=== PATIENT | female | born 1990 | race Caucasian/White ===

== ENCOUNTER 2017-11-30 21:58 | Emergency (ER) | payer OTHER, SELFPAY ==
--- OUTSIDE RECORDS SUMMARY | 2017-11-30 22:01 | XMS REPORT | Clinical Summary ---
:1990 Author Organization [facility] Address [address] [place] [address] Care Team Providers Name Role Phone Asked, No Pcp Primary Care Provider Unavailable Allergies Active Allergy Reactions Severity Noted Date Comments Cefadroxil 07/21/2017 Levofloxacin 07/21/2017 Morphine 07/21/2017 Current Medications Prescription Sig. Disp. Refills Start Date End Date Status keTOROlac (TORadol) Take 1 tablet 20 tablet 0 07/21/2017 07/21/2017 Discontinued 10 mg tablet (10 mg total) by mouth every 6 (six) hours as needed for moderate pain for up to 5 days. keTOROlac (TORadol) Take 1 tablet 20 tablet 0 07/21/2017 07/26/2017 10 mg tablet (10 mg total) by mouth every 6 (six) hours as needed for moderate pain for up to 5 days. Active Problems Not on file Encounters Date Type Specialty Care Team Description 07/21/2017 Emergency Emergency Medicine Valentin Dominicdiane-Cristobal Flank pain (Primary Dx); MD Darell Kidney stones after 11/29/2016 Social History Tobacco Use Types Packs/Day Years Used Date Never Smoker Smokeless Tobacco: Never Used Alcohol Use Drinks/Week oz/Week Comments Yes social Sex Assigned at Date Recorded Not on file Last Filed Vital Signs Vital Sign Reading Time Taken Blood Pressure 141/89 07/21/2017 8:14 PM CDT Pulse 95 07/21/2017 8:14 PM CDT Temperature 37.2 C (98.9 F) 07/21/2017 8:14 PM CDT Respiratory Rate 15 07/21/2017 8:14 PM CDT Oxygen Saturation 98% 07/21/2017 8:14 PM CDT Inhaled Oxygen Concentration - - Weight - - Height 165.1 cm (5' 5") 07/21/2017 3:07 PM CDT Body Mass Index - - Plan of Treatment Health Maintenance Due Date Last Done Comments CERVICAL CANCER SCREENING 2009 INFLUENZA VACCINE 12/03/2017 Procedures Procedure Name Priority Date/Time Associated Comments Diagnosis ESTIMATED GFR STAT 07/21/2017 5:50 Results for this PM CDT procedure are in the results section. COMPREHENSIVE STAT 07/21/2017 5:50 Results for this METABOLIC PANEL PM CDT procedure are in the results section. HC COMPLETE BLD COUNT STAT 07/21/2017 5:50 Results for this W/AUTO DIFF PM CDT procedure are in the results section. CT RENAL STONE STAT 07/21/2017 5:41 Results for this PROTOCOL PM CDT procedure are in the results section. after 11/29/2016 Results Estimated GFR (07/21/2017 5:50 PM) GFR Non Af Amer 74 mL/min/1.73 m2 [facility] DEPARTMENT OF PATHOLOGY AND GENOMIC MEDICINE GFR Af Amer 90 mL/min/1.73 m2 [facility] DEPARTMENT OF Comment: PATHOLOGY AND GENOMIC Chronic kidney disease: <60 mL/min/1.73m2 MEDICINE Kidney failure: <15 mL/min/1.73m2 The estimated GFR is calculated from the IDMS-traceable Modification of Diet in Renal Disease Equation. The accuracy of the calculation is poor when the creatinine is normal. Calculated values >90 mL/min/1.73m2 are not reported. This equation has not been validated in children (<18 years), women, the elderly (>70 years), or ethnic groups other than Caucasians and Americans. Specimen Plasma specimen Performing Organization Address City/State/Zipcode Phone Number [facility] DEPARTMENT OF PATHOLOGY AND [address] [place] [address] [employer] [facility] CBC with platelet and differential (07/21/2017 5:50 PM) WBC 10.91 4.50 - 11.00 k/uL [facility] DEPARTMENT OF PATHOLOGY AND GENOMIC MEDICINE RBC 4.57 4.20 - 5.50 m/uL [facility] DEPARTMENT OF PATHOLOGY AND GENOMIC MEDICINE HGB 13.6 12.0 - 16.0 g/dL [facility] DEPARTMENT OF PATHOLOGY AND GENOMIC MEDICINE HCT 40.3 37.0 - 47.0 % [facility] DEPARTMENT OF PATHOLOGY AND GENOMIC MEDICINE MCV 88.2 82.0 - 100.0 fL [facility] DEPARTMENT OF PATHOLOGY AND GENOMIC MEDICINE MCH 29.8 27.0 - 34.0 pg [facility] DEPARTMENT OF PATHOLOGY AND GENOMIC MEDICINE MCHC 33.7 31.0 - 37.0 g/dL [facility] DEPARTMENT OF PATHOLOGY AND GENOMIC MEDICINE RDW - SD 41.0 37.0 - 55.0 fL [facility] DEPARTMENT OF PATHOLOGY AND GENOMIC MEDICINE MPV 10.6 8.8 - 13.2 fL [facility] DEPARTMENT OF PATHOLOGY AND GENOMIC MEDICINE Platelet count 310 150 - 400 k/uL [facility] DEPARTMENT OF PATHOLOGY AND GENOMIC MEDICINE Nucleated RBC 0.00 /100 WBC [facility] DEPARTMENT OF PATHOLOGY AND GENOMIC MEDICINE Neutrophils 66.3 39.0 - 69.0 % [facility] DEPARTMENT OF PATHOLOGY AND GENOMIC MEDICINE Lymphocytes 26.7 25.0 - 45.0 % [facility] DEPARTMENT OF PATHOLOGY AND GENOMIC MEDICINE Monocytes 5.7 0.0 - 10.0 % [facility] DEPARTMENT OF PATHOLOGY AND GENOMIC MEDICINE Eosinophils 0.7 0.0 - 5.0 % [facility] DEPARTMENT OF PATHOLOGY AND GENOMIC MEDICINE Basophils 0.3 0.0 - 1.0 % [facility] DEPARTMENT OF PATHOLOGY AND GENOMIC MEDICINE Immature granulocytes 0.3Comment: 0.0 - 1.0 % [facility] DEPARTMENT OF "Immature PATHOLOGY AND GENOMIC granulocytes" MEDICINE (promyelocytes, myelocytes, metamyelocytes) Specimen Blood Performing Organization Address City/State/Zipcode Phone Number [facility] DEPARTMENT OF PATHOLOGY AND [address] [place] [phone] GENOMIC MEDICINE Comprehensive metabolic panel (07/21/2017 5:50 PM) Sodium 145 135 - 148 mEq/L [facility] DEPARTMENT OF PATHOLOGY AND GENOMIC MEDICINE Potassium 3.7 3.5 - 5.0 mEq/L [facility] DEPARTMENT OF PATHOLOGY AND GENOMIC MEDICINE Chloride 105 98 - 112 mEq/L [facility] DEPARTMENT OF PATHOLOGY AND GENOMIC MEDICINE CO2 27 24 - 31 mEq/L [facility] DEPARTMENT OF PATHOLOGY AND GENOMIC MEDICINE Anion gap 13 7 - 15 mEq/L [facility] DEPARTMENT OF Comment: PATHOLOGY AND GENOMIC Starting from August , anion gap calculation MEDICINE no longer incorporates potassium. Please note the change. BUN 10 6 - 20 mg/dL [facility] DEPARTMENT OF PATHOLOGY AND GENOMIC MEDICINE Creatinine 0.9 0.5 - 0.9 mg/dL [facility] DEPARTMENT OF PATHOLOGY AND GENOMIC MEDICINE Glucose 88 65 - 99 mg/dL [facility] DEPARTMENT OF PATHOLOGY AND GENOMIC MEDICINE Calcium 9.2 8.3 - 10.2 mg/dL [facility] DEPARTMENT OF PATHOLOGY AND GENOMIC MEDICINE Protein 7.2 6.3 - 8.3 g/dL [facility] DEPARTMENT OF Comment: PATHOLOGY AND GENOMIC 4.6-7.0 g/dL MEDICINE 1 week 4.4-7.6 g/dL 7 months-1year5.1-7.3 g/dL 1-2 years5.6-7.5 g/dL >3 years6.0-8.0 g/dL 18-150 6.3-8.3 g/dL Albumin 3.8 3.5 - 5.0 g/dL [facility] DEPARTMENT OF PATHOLOGY AND GENOMIC MEDICINE A/G ratio 1.1 0.7 - 3.8 [facility] DEPARTMENT OF PATHOLOGY AND GENOMIC MEDICINE Alkaline phosphatase 82 35 - 104 U/L [facility] DEPARTMENT OF PATHOLOGY AND GENOMIC MEDICINE AST 17 10 - 35 U/L [facility] DEPARTMENT OF PATHOLOGY AND GENOMIC MEDICINE ALT 16 5 - 50 U/L [facility] DEPARTMENT OF PATHOLOGY AND GENOMIC MEDICINE Total bilirubin 0.3 0.0 - 1.2 mg/dL [facility] DEPARTMENT OF PATHOLOGY AND GENOMIC MEDICINE Specimen Plasma specimen Performing Organization Address City/State/Zipcode Phone Number [facility] DEPARTMENT OF PATHOLOGY AND [address] [place] [address] [facility] [address] Renal Stone Protocol (07/21/2017 5:41 PM) Narrative Performed At EXAMINATION:CT RENAL STONE PROTOCOL RADIANT CLINICAL HISTORY:flank pain TECHNIQUE:Multiple axial images of the abdomen and pelvis were obtained without intravenous administration of iodinated contrast. Sagittal and coronal computerized reformatted images were also obtained. The lack of intravenous contrast reduces the sensitivity of detecting solid organ disease. CT imaging was performed with iterative reconstruction techniques and/or automated exposure control to reduce radiation dose. COMPARISON:None. 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 No ureteral calculus or hydronephrosis is present. The urinary bladder is unremarkable. 2.The unenhanced liver, spleen, pancreas, and adrenals are within normal limits. The gallbladder is absent. 3.No small or large bowel obstruction or inflammation is seen. The stomach is unremarkable. The appendix is not visualized but there is no inflammation or other abnormality near the cecum. 4.Uterus and adnexa are unremarkable. 5.There is no lymphadenopathy or ascites. 6.There is no significant skeletal abnormality. [id number] Procedure Note Interface, Radiology Results Incoming - 07/21/2017 5:49 PM CDT EXAMINATION: CT RENAL STONE PROTOCOL CLINICAL HISTORY: flank pain TECHNIQUE: Multiple axial images of the abdomen and pelvis were obtained without intravenous administration of iodinated contrast. Sagittal and coronal computerized reformatted images were also obtained. The lack of intravenous contrast reduces the sensitivity of detecting solid organ disease. CT imaging was performed with iterative reconstruction techniques and/or automated exposure control to reduce radiation dose. COMPARISON: None. IMPRESSION: 1. 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 No ureteral calculus or hydronephrosis is present. The urinary bladder is unremarkable. 2. The unenhanced liver, spleen, pancreas, and adrenals are within normal limits. The gallbladder is absent. 3. No small or large bowel obstruction or inflammation is seen. The stomach is unremarkable. The appendix is not visualized but there is no inflammation or other abnormality near the cecum. 4. Uterus and adnexa are unremarkable. 5. There is no lymphadenopathy or ascites. 6. There is no significant skeletal abnormality. [id number]-[id number] [facility] Organization Address City/State/[facility] Phone Number [facility] [address] [place] [address] after 11/29/2016 Insurance Payer Benefit Plan / Group Subscriber ID Type Phone Address [facility] CHOICE/CHOICE + xxxxxxxxx HMO/PPO [address] [place] [id number]
[2017-11-30 22:55] LABS: Absolute Lymphocytes (CBC) 2.9 K/uL (0.7-4.9); Absolute Monocytes 0.5 K/uL (0.1-1.3); Absolute Neutrophil 4.4 K/uL (1.8-8.0); Eosinophils % 1.7 % (0-4.4); Hematocrit 38.9 % (36.0-45.0); Lymphocytes % 36.1 % (15.3-44.8); MCH 30.6 pg (27.0-35.0); MCV 88.6 fL (80-100); MPV 8.8 fL (7.6-11.3); Monocytes % 6.3 % (3.3-12.3); RBC Red Blood Cell Count 4.39 M/uL (3.86-4.86)
[2017-11-30 23:06] LABS: Protime INR 0.91
[2017-11-30 23:40] LABS: ALT/SGPT 51 U/L (12-78); AST/SGOT 20 U/L (15-37); Albumin 3.7 g/dL (3.4-5.0); Alkaline Phosphatase 99 U/L (45-117); BUN Blood Urea Nitrogen 11 mg/dL (7-18); Bicarbonate 29 mmol/L (21-32); Bilirubin Direct < 0.1 mg/dL (0-0.2); Bilirubin Total 0.2 mg/dL (0.2-1.0); CKMB Creatine Kinase MB < 1.0 ng/mL (0.3-3.6); Creatine Phosphokinase 76 U/L (26-192); Glucose Level 92 mg/dL (74-106); Magnesium 2.1 mg/dL (1.8-2.4); NT PRO-BNP 37 pg/mL (<125); Potassium 3.7 mmol/L (3.5-5.1); Protein, Total 6.9 g/dL (6.4-8.2); Sodium Level 142 mmol/L (136-145)
[2017-11-30 23:42] LABS: Urine Blood 1+ (NEG); Urine Glucose NEGATIVE (NEG); Urine Protein NEGATIVE (NEG)
[2017-11-30 23:51] LABS: Urine Amorphous Sediment 4+ /HPF (NONE SEEN); Urine Bacteria <20 /HPF (<20); Urine Culture Reflex Order NOT NEEDED; Urine RBC <5 /HPF (NONE SEEN)
--- NOTE | 2017-12-01 00:34 | EDPHYS ---
Physician Documentation [facility] Name: Radha Hu Age: 27 yrs Sex: Female : 1990 Arrival Date: 11/30/2017 Time: 22:02 Bed 8 Private MD: Denilson Riley E ED Physician Festus Ivan HPI: 11/30 22:00 This 27 yrs old Female presents to ER via Ambulatory with complaints of pm1 Shortness Of Breath, Feet Swelling, Hand Swelling. 22:00 The patient has shortness of breath at rest. Onset: The symptoms/episode began/occurred pm1 today. Duration: The symptoms are intermittent. The patient's shortness of breath is aggravated by nothing, is alleviated by nothing. Associated signs and symptoms: Pertinent positives: swelling to bilateral lower extremities and bilateral hands. Patient with complaints of bilateral lower extremity swelling for the last 2 days. Patient concerned that she might have blood clots due to traveling by car to [place]. Patient reports onset of shortness of breath today. No chest pain. Patient recently started on Norvasc that has helped with her blood pressure and headaches . Historical: - Allergies: 22:25 duracef; fc 22:25 Morphine; fc 22:25 Levaquin; fc 22:25 Tape; fc - Home Meds: 22:25 Norvasc 5 mg Oral tab 1 tab twice a day [Active]; fc - PMHx: 22:25 chronic back pain; Degenerative disc disease; hiatal hernia; ibs; Kidney stones; spinal fc stenosis; Hypertension; "sponge kidneys"; - PSHx: 22:25 ; Cholecystectomy; Appendectomy; RIGHT STENT; multiple kidney surg; fc - Immunization history:: Last tetanus immunization: up to date. - Social history:: Smoking status: Patient/guardian denies using tobacco. - Ebola Screening: : Patient negative for fever greater than or equal to 101.5 degrees Fahrenheit, and additional compatible Ebola Virus Disease symptoms Patient denies exposure to infectious person Patient denies travel to an Ebola-affected area in the 21 days before illness onset. ROS: 23:00 Constitutional: Negative for fever, chills, and weight loss, Eyes: Negative for injury, pm1 pain, redness, and discharge, ENT: Negative for injury, pain, and discharge, Neck: Negative for injury, pain, and swelling, Cardiovascular: Negative for chest pain, palpitations, and edema. 23:00 Abdomen/GI: Negative for abdominal pain, nausea, vomiting, diarrhea, and constipation, Back: Negative for injury and pain, : Negative for injury, bleeding, discharge, and swelling, MS/Extremity: Negative for injury and deformity, Skin: Negative for injury, rash, and discoloration, Neuro: Negative for headache, weakness, numbness, tingling, and seizure. 23:00 Respiratory: Positive for shortness of breath, Negative for cough, sputum production. Exam: 23:00 Constitutional: This is a well developed, well nourished patient who is awake, alert, pm1 and in no acute distress. Head/Face: Normocephalic, atraumatic. Eyes: Pupils equal round and reactive to light, extra-ocular motions intact. Lids and lashes normal. Conjunctiva and sclera are non-icteric and not injected. Cornea within normal limits. Periorbital areas with no swelling, redness, or edema. ENT: Nares patent. No nasal discharge, no septal abnormalities noted. Tympanic membranes are normal and external auditory canals are clear. Oropharynx with no redness, swelling, or masses, exudates, or evidence of obstruction, uvula midline. Mucous membranes moist. Neck: Trachea midline, no thyromegaly or masses palpated, and no cervical lymphadenopathy. Supple, full range of motion without nuchal rigidity, or vertebral point tenderness. No Meningismus. Chest/axilla: Normal chest wall appearance and motion. Nontender with no deformity. No lesions are appreciated. Cardiovascular: Regular rate and rhythm with a normal S1 and S2. No gallops, murmurs, or rubs. Normal PMI, no JVD. No pulse deficits. Respiratory: Lungs have equal breath sounds bilaterally, clear to auscultation and percussion. No rales, rhonchi or wheezes noted. No increased work of breathing, no retractions or nasal flaring. Abdomen/GI: Soft, non-tender, with normal bowel sounds. No distension or tympany. No guarding or rebound. No evidence of tenderness throughout. 23:00 Back: No spinal tenderness. No costovertebral tenderness. Full range of motion. Skin: Warm, dry with normal turgor. Normal color with no rashes, no lesions, and no evidence of cellulitis. MS/ Extremity: Pulses equal, no cyanosis. Neurovascular intact. Full, normal range of motion. 23:00 Cardiovascular: Edema: pedal edema, 1+, no edema present to hands. 23:00 Neuro: Orientation: is normal, Motor: is normal, moves all fours. Vital Signs: 22:00 BP 134 / 97; Pulse 87; Resp 18; Temp 98.2(O); Pulse Ox 100% on R/A; Weight 88.45 kg fc (R); Height 5 ft. 5 in. (165.10 cm) (R); Pain 5/10; 23:29 BP 109 / 92; Pulse 79; Resp 18; Pulse Ox 96% on R/A; aa1 12/01 00:18 BP 103 / 75; Pulse 84; Resp 16; Pulse Ox 100% on R/A; aa1 00:59 BP 117 / 79; Pulse 75; Resp 16; Pulse Ox 97% on R/A; Pain 0/10; aa1 11/30 22:00 Body Mass Index 32.45 (88.45 kg, 165.10 cm) fc MDM: 11/30 22:19 Patient medically screened. pm1 12/01 00:30 ED course: Negative for DVT, BMP WNL, BNP WNL, cardiac markers WNL, d-dimer negative, pm1 chest X-ray negative. Dependent edema likely due to new medication, Norvasc. Patient started on Norvasc on 11/[address] Nogueira. Instructed patient to follow up with Dr. Nogueira for further treatment and evaluation. 00:33 Data reviewed: vital signs. Data interpreted: Pulse oximetry: on room air is 100 %. pm1 Interpretation: normal. Counseling: I had a detailed discussion with the patient and/or guardian regarding: the historical points, exam findings, and any diagnostic results supporting the discharge/admit diagnosis, lab results, radiology results, the need for outpatient follow up, Dr. Nogueira, to return to the emergency department if symptoms worsen or persist or if there are any questions or concerns that arise at home. 11/30 22:26 Order name: Basic Metabolic Panel; Complete Time: 23:55 pm1 11/30 22:26 Order name: CBC with Diff; Complete Time: 23:55 pm1 11/30 22:26 Order name: Ckmb; Complete Time: 23:55 pm1 11/30 22:26 Order name: CPK; Complete Time: 23:55 pm1 11/30 22:26 Order name: LFT's; Complete Time: 23:55 pm1 11/30 22:26 Order name: Magnesium; Complete Time: 23:55 pm1 11/30 22:26 Order name: NT PRO-BNP; Complete Time: 23:55 pm1 11/30 22:26 Order name: PT-INR; Complete Time: 23:55 pm1 11/30 22:26 Order name: Ptt, Activated; Complete Time: 23:55 pm1 11/30 22:26 Order name: Troponin (emerg Dept Use Only); Complete Time: 23:55 pm1 11/30 22:27 Order name: Urine Microscopic Only; Complete Time: 23:55 pm1 11/30 22:53 Order name: D-Dimer; Complete Time: 23:55 EDMS 11/30 23:31 Order name: Urine Dipstick--Ancillary (enter results); Complete Time: 23:55 ms 11/30 22:26 Order name: Urine Test (obtain specimen); Complete Time: 23:29 pm1 11/30 22:26 Order name: XRAY Chest (1 view) 11/30 22:26 Order name: EKG; Complete Time: 22:27 pm11/30 22:26 Order name: Cardiac monitoring; Complete Time: 23:08 pm1 11/30 22:26 Order name: EKG - Nurse/Tech; Complete Time: 23:09 pm11/30 22:26 Order name: IV Saline Lock; Complete Time: 23:09 pm11/30 22:26 Order name: Labs collected and sent; Complete Time: 23:09 pm11/30 22:26 Order name: O2 Per Protocol; Complete Time: 23:09 pm11/30 22:26 Order name: O2 Sat Monitoring; Complete Time: 23:09 pm11/30 22:26 Order name: Urine Dipstick-Ancillary (obtain specimen); Complete Time: 23:29 pm1 11/30 22:50 Order name: Extrem Venous W Compression Elier US 11/30 23:31 Order name: Urine --Ancillary (enter results); Complete Time: 23:55 ms Administered Medications: No medications were administered Disposition: 12/01/17 00:34 Discharged to Home. Impression: Dependent edema. - Condition is Stable. - Discharge Instructions: Peripheral Edema. - Medication Reconciliation Form, Thank You Letter form. - Follow up: Emergency Department; When: As needed; Reason: Worsening of condition. Follow up: Private Physician; When: 2 - 3 days; Reason: Recheck today's complaints, Continuance of care, Re-evaluation by your physician. - Problem is new. - Symptoms have improved. Signatures: Dispatcher [employer] [facility] Naomi Gutierrez, RN RN aa1 Emerita Clemons RN RN fc Eligio eHarn, HOUSEKEEPER HEAD HOUSEKEEPER HEAD pm1 Corrections: (The following items were deleted from the chart) 11/30 22:52 22:51 D-DIMER+COAG.LAB.BRZ ordered. [facility] 23:16 22:48 Stone Protocol+CT.RAD.BRZ ordered. [facility] 12/01 01:02 00:34 12/01/2017 00:34 Discharged to Home. Impression: Dependent edema. Condition is aa1 Stable. Forms are Medication Reconciliation Form, Thank You Letter, Antibiotic Education, Prescription Opioid Use. Follow up: Emergency Department; When: As needed; Reason: Worsening of condition. Follow up: Private Physician; When: 2 - 3 days; Reason: Recheck today's complaints, Continuance of care, Re-evaluation by your physician. Problem is new. Symptoms have improved. pm1
--- NOTE | 2017-12-01 00:34 | ER ---
Nurse's Notes [facility] Name: Radha Hu Age: 27 yrs Sex: Female : 1990 Arrival Date: 11/30/2017 Time: 22:02 Bed 8 Private MD: Denilson Riley E Diagnosis: Dependent edema Presentation: 11/30 22:00 Presenting complaint: Patient states: that for 2 days she has been having swelling to hands and feet, then today at 1600 she started to have shortness of breath. Also having back pain. Transition of care: patient was not received from another setting of care. Onset of symptoms was November 28, 2017. Risk Assessment: Do you want to hurt yourself or someone else? Patient reports no desire to harm self or others. Initial Sepsis Screen: Does the patient meet any 2 criteria? No. Patient's initial sepsis screen is negative. Does the patient have a suspected source of infection? No. Patient's initial sepsis screen is negative. Care prior to arrival: None. 22:00 Method Of Arrival: Ambulatory 22:00 Acuity: RENÉE 3 fc Historical: - Allergies: 22:25 duracef; fc 22:25 Morphine; fc 22:25 Levaquin; fc 22:25 Tape; fc - Home Meds: 22:25 Norvasc 5 mg Oral tab 1 tab twice a day [Active]; fc - PMHx: 22:25 chronic back pain; Degenerative disc disease; hiatal hernia; ibs; Kidney stones; spinal fc stenosis; Hypertension; "sponge kidneys"; - PSHx: 22:25 ; Cholecystectomy; Appendectomy; RIGHT STENT; multiple kidney surg; fc - Immunization history:: Last tetanus immunization: up to date. - Social history:: Smoking status: Patient/guardian denies using tobacco. - Ebola Screening: : Patient negative for fever greater than or equal to 101.5 degrees Fahrenheit, and additional compatible Ebola Virus Disease symptoms Patient denies exposure to infectious person Patient denies travel to an Ebola-affected area in the 21 days before illness onset. Screenin:00 Abuse screen: Denies threats or abuse. Nutritional screening: No deficits noted. fc Tuberculosis screening: No symptoms or risk factors identified. Fall Risk None identified. Assessment: 22:30 General: Appears in no apparent distress. comfortable, Behavior is calm, cooperative, aa1 appropriate for age. Pain: Complains of pain in posterior aspect of right lateral abdomen and posterior aspect of left lateral abdomen Quality of pain is described as aching, Pain began earlier today Is continuous. Neuro: Level of Consciousness is awake, alert, obeys commands, Oriented to person, place, time, situation, Moves all extremities. Full function Gait is steady, Speech is normal. Cardiovascular: Denies chest pain, diaphoresis, palpitations, Heart tones S1 S2 present Capillary refill < 3 seconds Clubbing of nail beds is absent JVD is absent pt reports pitting edema to BLE although no pitting edema noted upon examination Rhythm is regular. Respiratory: Reports shortness of breath at rest since this evening Airway is patent Respiratory effort is even, unlabored, Respiratory pattern is regular, symmetrical, Breath sounds are clear bilaterally. GI: No signs and/or symptoms were reported involving the gastrointestinal system. : No signs and/or symptoms were reported regarding the genitourinary system. EENT: No signs and/or symptoms were reported regarding the EENT system. Derm: Skin is intact, is healthy with good turgor, Skin is pink, warm \\T\\ dry. Musculoskeletal: Circulation, motion, and sensation intact. Capillary refill < 3 seconds, Range of motion: intact in all extremities. 23:29 Reassessment: Patient appears in no apparent distress at this time. Patient and/or aa1 family updated on plan of care and expected duration. Pain level reassessed. Patient is alert, oriented x 3, equal unlabored respirations, skin warm/dry/pink. Awaiting lab results. 12/01 00:20 Reassessment: Patient appears in no apparent distress at this time. Patient and/or aa1 family updated on plan of care and expected duration. Pain level reassessed. Patient is alert, oriented x 3, equal unlabored respirations, skin warm/dry/pink. Awaiting provider reassessment. 00:59 Reassessment: Patient appears in no apparent distress at this time. Patient is alert, aa1 oriented x 3, equal unlabored respirations, skin warm/dry/pink. Discussed d/c \\T\\ f/u instructions with pt \\T\\ spouse; denies questions or concerns at this time Patient states feeling better. Vital Signs: 11/30 22:00 BP 134 / 97; Pulse 87; Resp 18; Temp 98.2(O); Pulse Ox 100% on R/A; Weight 88.45 kg fc (R); Height 5 ft. 5 in. (165.10 cm) (R); Pain 5/10; 23:29 BP 109 / 92; Pulse 79; Resp 18; Pulse Ox 96% on R/A; aa1 12/01 00:18 BP 103 / 75; Pulse 84; Resp 16; Pulse Ox 100% on R/A; aa1 00:59 BP 117 / 79; Pulse 75; Resp 16; Pulse Ox 97% on R/A; Pain 0/10; aa1 11/30 22:00 Body Mass Index 32.45 (88.45 kg, 165.10 cm) fc ED Course: 11/30 22:00 Arm band placed on Patient placed in an exam room, on a stretcher. fc 22:00 Patient has correct armband on for positive identification. Placed in gown. Bed in low fc position. Call light in reach. Pulse ox on. NIBP on. 22:00 No provider procedures requiring assistance completed. fc 22:02 Patient arrived in ED. es 22:03 Denilson Riley MD is Private Physician. es 22:16 Eligio Hearn NP is PHCP. pm1 22:16 Festus Ivan MD is Attending Physician. pm1 22:22 Triage completed. fc 22:30 Initial lab(s) drawn, by wv, sent to lab. Inserted saline lock: 20 gauge in left aa1 antecubital area, using aseptic technique. Blood collected. 22:37 Naomi Gutierrez, JASON is Primary Nurse. aa1 22:40 XRAY Chest (1 view) In Process Unspecified. EDMS 23:22 Ultrasound completed. Patient tolerated well. sg3 23:23 Extrem Venous W Compression Elier US In Process Unspecified. EDMS 23:29 Urine collected: clean catch specimen, cloudy. aa1 12/01 00:59 IV discontinued, intact, bleeding controlled, No redness/swelling at site. Pressure aa1 dressing applied. Administered Medications: No medications were administered Outcome: 00:34 Discharge ordered by . pm1 01:01 Discharged to home ambulatory, with significant other. aa1 01:01 Condition: good 01:01 Discharge instructions given to patient, significant other, Instructed on discharge instructions, follow up and referral plans. Demonstrated understanding of instructions, follow-up care. 01:02 Patient left the ED. aa1 Signatures: Dispatcher [employer] Naomi Whitman RN RN aa1 Feli Young Felicia, RN RN Eligio Hearn, COATING INSPECTOR COATING INSPECTOR pm1 Chata Cope 3
--- NOTE | 2017-12-01 06:41 | EKG ---
Test Date: 2017-11-30 Test Time: 22:45:27 Refractory Tile Helper: DANNY MEASUREMENT RESULTS: Intervals: Rate: 73 CA: 166 QRSD: 94 QT: 386 QTc: 425 [place]: P: 31 CA: 166 QRS: 4 T: 11 INTERPRETIVE STATEMENTS: Sinus rhythm with marked sinus arrhythmia Minimal voltage criteria for LVH, may be normal variant Borderline ECG No previous ECG available for comparison Electronically Signed On 12-01-17 06:41:32 CDT by Santos Woodward
--- NOTE | 2017-12-01 09:29 | RAD REPORT ---
EXAM DESCRIPTION: RAD - Chest Single View - 11/30/2017 10:41 pm CLINICAL HISTORY: Extremity swelling, shortness of breath COMPARISON: May 2015 TECHNIQUE: AP portable chest image was obtained 2230 hours . FINDINGS: Lungs are clear. Heart and vasculature are normal. No measurable pleural effusion and no p neumothorax. No gross bony abnormality seen. No acute aortic findings suspected. IMPRESSION: No acute cardiopulmonary process. No failure or volume overload findings. Chest is not significantly different from 2016.
--- NOTE | 2017-12-01 09:38 | RAD REPORT ---
EXAM DESCRIPTION: VAS - Extrem Venous W Compress Elier - 11/30/2017 11:23 pm CLINICAL HISTORY: Bilateral leg pain and swelling COMPARISON: None. TECHNIQUE: Real-time sonographic evaluation of the bilateral lower extremity deep venous systems was performed. FINDINGS: Normal compressibility, flow augmentation, phasic flow and spontaneous flow are identified in the left and right lower extremity common femoral, superficial femoral, popliteal and posterior t ibial veins. No intraluminal filling defects seen. IMPRESSION: No DVT in either lower extremity.
== END 2017-12-01 01:02 | disposition home or self-care (01) ==
LOC: ER 21:58
DX: R60.9 Edema, unspecified (principal); I10 Essential (primary) hypertension; Z88.6 Allergy status to analgesic agent; Z88.1 Allergy status to other antibiotic agents; Z88.8 Allergy status to other drugs, medicaments and biological substances; Z91.048 Other nonmedicinal substance allergy status
CPT/HCPCS: 36415; 71045; 80048; 80076; 81003; 81015; 81025; 82550; 82553; 83735; 83880; 84484; 85025; 85379; 85610; 85730; 93005; 93970; 99284

== ENCOUNTER 2018-10-20 12:23 | Emergency (ER) | payer OTHER ==
--- OUTSIDE RECORDS SUMMARY | 2018-10-20 12:25 | XMS REPORT | Clinical Summary ---
:1990 Author Organization [facility] Address [address] [place] [address] Care Team Providers Name Role Phone Asked, No Pcp Primary Care Provider Unavailable Allergies Active Allergy Reactions Severity Noted Date Comments Cefadroxil 07/21/2017 Levofloxacin 07/21/2017 Morphine 07/21/2017 Medications Not on file Active Problems Not on file Social History Tobacco Use Types Packs/Day Years Used Date Never Smoker Smokeless Tobacco: Never Used Alcohol Use Drinks/Week oz/Week Comments Yes social Sex Assigned at Date Recorded Not on file Job Start Date Occupation Industry Not on file Not on file Not on file Travel History Travel Start Travel End No recent travel history available. Last Filed Vital Signs Not on file Plan of Treatment Health Maintenance Due Date Last Done Comments INFLUENZA VACCINE 12/03/2018 Results Not on fileafter 10/19/2017 (Home) [address] [place] [id number] Advance Directives Patient has advance care planning documents on file. For more information, please contact:[address] [address]
--- OUTSIDE RECORDS SUMMARY | 2018-10-20 12:25 | XMS REPORT ---
:1990 Author [facility] Address [address] [place] [address] Dr. Yusuf [address] [place] [id number] Care Team Providers Name Role Phone Unavailable Unavailable Unavailable Problems This patient has no known problems. Allergies, Adverse Reactions, Alerts This patient has no known allergies or adverse reactions. Medications This patient has no known medications.
[2018-10-20 13:20] LABS: Absolute Lymphocytes (CBC) 2.3 K/uL (0.7-4.9); Basophils % 1.1 % (0-1.3); Eosinophils % 1.1 % (0-4.4); Lymphocytes % 24.7 % (15.3-44.8); MPV 8.5 fL (7.6-11.3); Monocytes % 4.7 % (3.3-12.3); RBC Red Blood Cell Count 4.86 M/uL (3.86-4.86)
[2018-10-20] MEDS ORDERED: ONDANSETRON 4 MG/2 ML VIAL ONE (13:31)
[2018-10-20] MEDS ORDERED: NA CHLORIDE 0.9% 1,000 ML ONE (13:31)
[2018-10-20] MEDS ORDERED: FENTANYL CITR 100 MCG/2 ML ONE (13:31)
[2018-10-20 13:40] LABS: Potassium 4.2 mmol/L (3.5-5.1)
[2018-10-20 13:50] LABS: Urine Blood 2+ (NEG); Urine Glucose NEGATIVE (NEG); Urine Protein NEGATIVE (NEG); Urine pH 5.5 (5.0-7.0)
--- NOTE | 2018-10-20 14:24 | RAD REPORT ---
EXAM DESCRIPTION: CT - Stone Protocol - 10/20/2018 2:06 pm CLINICAL HISTORY: Right flank pain Patient indicates history of right UPJ 5 mm stone diagnosed on outside CT study several days earlier. COMPARISON: CT study August 2016. The most recent outside studies not available. TECHNIQUE: Axial 5 mm thick images were obtained without oral or IV contrast. The [id number] span s the entirety of the system partially obscuring uppermost abdomen and lung bases. All CT scans are performed using dose optimization technique as appropriate and may include automated exposure control or mA/KV adjustment according to patient size. FINDINGS: Patient has numerous calcifications up to 7 mm size can calices of both kidneys. There is additional renal pyramid mineralization of each kidney. This pattern is not significantly different f rom the 2017 comparison. No right UPJ calculus identified and no calcification confirmed along the course of the right ureter. There is a 9 millimeter calcification in the right lower pelvis (image 129/158) that is new from 201 7 but believed to be medial to the course of the right ureter. No ureteral or bladder calculus identi fied. No correlate for the historically stated right-side obstructing calculus. No hydronephrosis pre sent. Pelvic floor calcification pattern is otherwise stable from 2017. No suspicious renal masses. Isodense masses and pyelonephritis are not excluded on a stone protocol CT scan. No urinary bladder suspicious finding. No significant adrenal finding. Imaged portions of the liver, spleen and pancreas show no suspicious findings on non-contrast imaging . No gallbladder or biliary tree abnormality identified. No suspicious bowel findings. No hernia, mass or bulky lymphadenopathy noted. No free air, free fluid or inflammatory stranding. No acute bone finding. IMPRESSION: No hydronephrosis present and no bladder or ureteral calculus as a correlate to the aleyda ent provided history of right-side 5 mm UPJ calculus. Patient has numerous variably sized calyx calculi as well as renal. Mid mineralization. Pattern is no t substantially different from 2017. No specific finding to indicate retrograde movement of a calculu s from the UPJ to a calyx. Isodense masses and pyelonephritis are not excluded on stone protocol technique.
--- NOTE | 2018-10-20 14:45 | EDPHYS ---
Physician Documentation [facility] Name: Radha Hu Age: 27 yrs Sex: Female : 1990 Arrival Date: 10/20/2018 Time: 12:27 Bed 25 Private MD: ED Physician Selwyn Villa HPI: 10/20 13:11 This 27 yrs old Female presents to ER via Ambulatory with complaints of kdr Possible Kidney Stone. 13:11 The patient complains of pain in the right mid back. Right flank. Onset: The kdr symptoms/episode began/occurred gradually, 4 day(s) ago. Modifying factors: The symptoms are alleviated by nothing. the symptoms are aggravated by movement, palpation/percussion. Associated signs and symptoms: Pertinent positives: diarrhea, nausea, vomiting. Severity of pain: At its worst the pain was moderate severe just prior to arrival, today, in the emergency department the pain is unchanged. The patient has experienced similar episodes in the past, multiple times, chronically. The patient has been recently seen by a physician: Was seen in the last few days at [facility] in [place]. 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 - Social history:: Smoking status: unknown Patient/guardian denies using alcohol, street drugs, IV drugs. - Ebola Screening: : No symptoms or risks identified at this time. ROS: 13:11 Constitutional: Negative for weight loss - has had fever and chills the last few days kdr Eyes: Negative for injury, pain, redness, and discharge, Neck: Negative for injury, pain, and swelling, Cardiovascular: Negative for chest pain, palpitations, and edema, Respiratory: Negative for shortness of breath, cough, wheezing, and pleuritic chest pain, : Negative for injury, bleeding, discharge, and swelling, MS/Extremity: Negative for injury and deformity, Skin: Negative for injury, rash, and discoloration, Neuro: Negative for headache, weakness, numbness, tingling, and seizure activity. Psych: Negative for depression, anxiety, suicide ideation, homicidal ideation, and hallucinations, Allergy/Immunology: Negative for hives, rash, and allergies, Endocrine: Negative for neck swelling, polydipsia, polyuria, polyphagia, and marked weight changes. 13:11 Abdomen/GI: Positive for abdominal pain, nausea and vomiting, diarrhea, Negative for black/tarry stool, rectal pain, rectal bleeding. Exam: 13:11 Constitutional: This is a well developed, well nourished patient who is awake, alert, kdr and in no acute distress. Head/Face: Normocephalic, atraumatic. Eyes: Pupils equal round and reactive to light, extra-ocular motions intact. Lids and lashes normal. Conjunctiva and sclera are non-icteric and not injected. Cornea within normal limits. Periorbital areas with no swelling, redness, or edema. Neck: Trachea midline, no thyromegaly or masses palpated, and no cervical lymphadenopathy. Supple, full range of motion without nuchal rigidity, or vertebral point tenderness. No Meningismus. Chest/axilla: Normal chest wall appearance and motion. Nontender with no deformity. No lesions are appreciated. Cardiovascular: Regular rate and rhythm with a normal S1 and S2. No gallops, murmurs, or rubs. Normal PMI, no JVD. No pulse deficits. Respiratory: Lungs have equal breath sounds bilaterally, clear to auscultation and percussion. No rales, rhonchi or wheezes noted. No increased work of breathing, no retractions or nasal flaring. Back: No spinal tenderness. No costovertebral tenderness. Full range of motion. Skin: Warm, dry with normal turgor. Normal color with no rashes, no lesions, and no evidence of cellulitis. MS/ Extremity: Pulses equal, no cyanosis. Neurovascular intact. Full, normal range of motion. Neuro: Awake and alert, GCS 15, oriented to person, place, time, and situation. Cranial nerves II-XII grossly intact. Motor strength 5/5 in all extremities. Sensory grossly intact. Cerebellar exam normal. Normal gait. Psych: Awake, alert, with orientation to person, place and time. Behavior, mood, and affect are within normal limits. 13:11 Abdomen/GI: Inspection: abdomen appears normal, obese Bowel sounds: Palpation: soft, mild abdominal tenderness, in the umbilical area, right upper quadrant and left upper quadrant. Vital Signs: 12:30 BP 123 / 82; Pulse 104; Resp 18; Temp 98.8(O); Pulse Ox 100% on R/A; Weight 90.72 kg; hj Height 5 ft. 5 in. (165.10 cm); Pain 9/10; 14:47 BP 108 / 73; Pulse 100; Resp 18; Temp 98.7; Pulse Ox 100% on R/A; Pain 0/10; mg2 15:24 BP 111 / 81; Pulse 95; Resp 18; Temp 98.5; Pulse Ox 100% on R/A; Pain 2/10; mg2 12:30 Body Mass Index 33.28 (90.72 kg, 165.10 cm) hj MDM: 14:44 Patient medically screened. kdr 15:00 Data reviewed: vital signs, nurses notes, lab test result(s), radiologic studies. kdr Counseling: I had a detailed discussion with the patient and/or guardian regarding: the historical points, exam findings, and any diagnostic results supporting the discharge/admit diagnosis, lab results, radiology results, the need for outpatient follow up. 10/20 12:54 Order name: Basic Metabolic Panel; Complete Time: 14:42 kdr 10/20 12:54 Order name: CBC with Diff; Complete Time: 14:42 kdr 10/20 12:54 Order name: Creatinine for Radiology; Complete Time: 14:42 kdr 10/20 13:10 Order name: CT Stone Protocol; Complete Time: 14:42 kdr 10/20 13:33 Order name: Urine Dipstick--Ancillary (enter results) bd 10/20 13:33 Order name: Urine --Ancillary (enter results) bd 10/20 12:54 Order name: IV Saline Lock; Complete Time: 13:10 kdr 10/20 12:54 Order name: Labs collected and sent; Complete Time: 13:10 kdr Administered Medications: 13:34 Drug: NS 0.9% 1000 ml Route: IV; Rate: 1 bolus; Site: left antecubital; mg2 14:47 Follow up: Response: No adverse reaction; IV Status: Completed infusion; IV Intake: mg2 1000ml 13:34 Drug: fentaNYL (PF) 50 mcg Route: IVP; Site: left antecubital; mg2 14:14 Follow up: Response: No adverse reaction; Marked relief of symptoms mg2 13:34 Drug: Zofran 4 mg Route: IVP; Site: left antecubital; mg2 14:14 Follow up: Response: No adverse reaction; Marked relief of symptoms mg2 Disposition: 10/20/18 14:44 Discharged to Home. Impression: Unspecified renal colic, Hematuria, unspecified, Right flank pain. - Condition is Stable. - Discharge Instructions: Hematuria, Adult, Renal Colic, [id number], Kidney Stones, [id number], Intravenous Pyelogram. - Prescriptions for cefuroxime axetil 250 mg Oral tablet - take 1 tablet by ORAL route every 12 hours; 20 tablet. - Medication Reconciliation Form, Thank You Letter form. - Follow up: Private Physician; When: 2 - 3 days; Reason: If symptoms return, Further diagnostic work-up, Recheck today's complaints, Continuance of care, Re-evaluation by your physician. - Problem is an ongoing problem. - Symptoms have improved. Signatures: Dispatcher [employer] EDAL Selwyn Villa MD MD [facility] Jose E Hallman RN RN Kurtis Marie RN RN mg2 Corrections: (The following items were deleted from the chart) 15:25 14:44 10/20/2018 14:44 Discharged to Home. Impression: Unspecified renal colic; mg2 Hematuria, unspecified; Right flank pain. Condition is Stable. Forms are Medication Reconciliation Form, Thank You Letter, Antibiotic Education, Prescription Opioid Use. Follow up: Private Physician; When: 2 - 3 days; Reason: If symptoms return, Further diagnostic work-up, Recheck today's complaints, Continuance of care, Re-evaluation by your physician. Problem is an ongoing problem. Symptoms have improved. kdr
--- NOTE | 2018-10-20 14:45 | ER ---
Nurse's Notes [facility] Name: Radha Hu Age: 27 yrs Sex: Female : 1990 Arrival Date: 10/20/2018 Time: 12:27 Bed 25 Private MD: Diagnosis: Unspecified renal colic;Hematuria, unspecified;Right flank pain Presentation: 10/20 12:27 Presenting complaint: Patient states: i went to [facility] ER last Lester, they said i had hj 5mm stone on the R UPJ, my urine culture is positive for UTI, urologist, told me to come here for eval; now, both my sides are killing me; reports fever and chills; reports N/V and diarrhea;. Transition of care: patient was not received from another setting of care. Onset of symptoms was October 20, 2018. Risk Assessment: Do you want to hurt yourself or someone else? Patient reports no desire to harm self or others. Initial Sepsis Screen: Does the patient meet any 2 criteria? No. Patient's initial sepsis screen is negative. Does the patient have a suspected source of infection? No. Patient's initial sepsis screen is negative. Care prior to arrival: None. 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 - Social history:: Smoking status: unknown Patient/guardian denies using alcohol, street drugs, IV drugs. - Ebola Screening: : No symptoms or risks identified at this time. Screenin:16 Abuse screen: Denies threats or abuse. Denies injuries from another. Nutritional mg2 screening: No deficits noted. Tuberculosis screening: No symptoms or risk factors identified. Fall Risk IV access (20 points). Assessment: 14:15 General: Appears in no apparent distress. comfortable, Behavior is calm, cooperative. mg2 Pain: Complains of pain in both flanks Pain does not radiate. Pain currently is 5 out of 10 on a pain scale. Quality of pain is described as aching, Pain began gradually, last Friday Is intermittent, Alleviated by medications. Neuro: Level of Consciousness is awake, alert, obeys commands, Oriented to person, place, time, situation. Cardiovascular: Capillary refill < 3 seconds Patient's skin is warm and dry. Respiratory: Airway is patent Respiratory effort is even, unlabored, Respiratory pattern is regular, symmetrical. GI: Bowel sounds present X 4 quads. Abd is soft. : Urine is clear. EENT: No signs and/or symptoms were reported regarding the EENT system. Derm: Skin is intact, is healthy with good turgor, Skin is pink, warm \\T\\ dry. normal. Musculoskeletal: Circulation, motion, and sensation intact. Capillary refill < 3 seconds. Vital Signs: 12:30 BP 123 / 82; Pulse 104; Resp 18; Temp 98.8(O); Pulse Ox 100% on R/A; Weight 90.72 kg; hj Height 5 ft. 5 in. (165.10 cm); Pain 9/10; 14:47 BP 108 / 73; Pulse 100; Resp 18; Temp 98.7; Pulse Ox 100% on R/A; Pain 0/10; mg2 15:24 BP 111 / 81; Pulse 95; Resp 18; Temp 98.5; Pulse Ox 100% on R/A; Pain 2/10; mg2 12:30 Body Mass Index 33.28 (90.72 kg, 165.10 cm) ED Course: 12:27 Patient arrived in ED. rg4 12:30 Triage completed. hj 12:30 Arm band placed on left wrist. hj 12:54 Kurtis Marie, JASON is Primary Nurse. mg2 12:54 Selwyn Villa MD is Attending Physician. kdr 13:30 Inserted saline lock: 20 gauge in left antecubital area, using aseptic technique. Blood mg2 collected. 13:46 No provider procedures requiring assistance completed. mg2 14:07 CT Stone Protocol In Process Unspecified. EDMS 14:16 Patient has correct armband on for positive identification. Pulse ox on. NIBP on. Door mg2 closed. Warm blanket given. 15:25 IV discontinued, intact, bleeding controlled, No redness/swelling at site. Pressure mg2 dressing applied. Administered Medications: 13:34 Drug: NS 0.9% 1000 ml Route: IV; Rate: 1 bolus; Site: left antecubital; mg2 14:47 Follow up: Response: No adverse reaction; IV Status: Completed infusion; IV Intake: mg2 1000ml 13:34 Drug: fentaNYL (PF) 50 mcg Route: IVP; Site: left antecubital; mg2 14:14 Follow up: Response: No adverse reaction; Marked relief of symptoms mg2 13:34 Drug: Zofran 4 mg Route: IVP; Site: left antecubital; mg2 14:14 Follow up: Response: No adverse reaction; Marked relief of symptoms mg2 Intake: 14:47 IV: 1000ml; Total: 1000ml. mg2 Outcome: 14:44 Discharge ordered by . kdr 15:25 Discharged to home ambulatory. mg2 15:25 Condition: stable 15:25 Discharge instructions given to patient, Instructed on discharge instructions, follow up and referral plans. medication usage, Demonstrated understanding of instructions, follow-up care, medications, Prescriptions given X 1. 15:25 Patient left the ED. mg2 Signatures: Dispatcher [employer] EDMS Selwyn Villa MD MD kdr Jose E Hallman RN RN hj Garcia, Rubi rg4 Kurtis Marie RN RN mg2 Corrections: (The following items were deleted from the chart) 12:32 12:30 Pulse 104bpm; Resp 18bpm; Pulse Ox 100% RA; Temp 98.8F Oral; 90.72 kg; Height 5 hj ft. 5 in.; BMI: 33.2; Pain 9/10; hj
== END 2018-10-20 15:25 | disposition home or self-care (01) ==
LOC: ER 12:23
DX: N23 Unspecified renal colic (principal); R31.9 Hematuria, unspecified; I10 Essential (primary) hypertension; Z88.1 Allergy status to other antibiotic agents; Z88.5 Allergy status to narcotic agent; Z87.442 Personal history of urinary calculi; Z91.048 Other nonmedicinal substance allergy status
CPT/HCPCS: 36415; 74176; 76377; 80048; 81003; 81025; 85025; 96361; 96374; 96375; 99284; J2405; J3010; J7030

== ENCOUNTER 2018-12-09 18:32 | Emergency (ER) | payer OTHER ==
--- OUTSIDE RECORDS SUMMARY | 2018-12-09 18:34 | XMS REPORT | Clinical Summary ---
:1990 Author Organization [facility] Address [address] [place] [address] Care Team Providers Name Role Phone Asked, [...] INFLUENZA VACCINE 12/03/2018 Results Not on fileafter 12/08/2017 (Home) [address] [place] [id number] Advance Directives Patient has advance care planning documents on file. For more information, please contact:[address] [address]
--- OUTSIDE RECORDS SUMMARY | 2018-12-09 18:34 | XMS REPORT ---
:1990 [facility] Address [address] [place] [address] Dr. Yusuf [address] [place] [id number] Care Team Providers Name Role Phone Unavailable Unavailable Unavailable Problems This patient has no known problems. Allergies, Adverse Reactions, Alerts This patient has no known allergies or adverse reactions. Medications This patient has no known medications.
--- NOTE | 2018-12-09 20:09 | RAD REPORT ---
EXAM DESCRIPTION: USExtremity Venous Uni Ltd12/09/2018 8:00 pm CLINICAL HISTORY: Right leg pain and swelling. COMPARISON: 2017 FINDINGS: Right common femoral, superficial femoral, popliteal and right posterior tibial veins are compressible and demonstrate augmentation. Doppler demonstrates good flow. 1 centimeter fluid collection within the anterior right lower extremity at the site of puncture wound IMPRESSION: No evidence of deep venous thrombosis involving the right lower extremity. 1 centimeter fluid collection within the anterior right lower extremity at the site of puncture wound may represent an abscess or hematoma
--- NOTE | 2018-12-09 20:17 | RAD REPORT ---
EXAM DESCRIPTION: RAD - Tib Fib Right - 12/09/2018 8:08 pm CLINICAL HISTORY: Right leg pain FINDINGS: No fracture is seen No bony destructive lesion. Edema within the subcutaneous tissues
[2018-12-09] MEDS ORDERED: LIDOCAINE 1% MPF 5 ML VIAL ONE (20:25)
--- NOTE | 2018-12-09 21:20 | EDPHYS ---
Physician Documentation [facility] Name: Radha Hu Age: 28 yrs Sex: Female : 1990 Arrival Date: 12/09/2018 Time: 18:36 Bed 24 Private MD: ED Physician Jian Steen HPI: 12/09 21:38 This 28 yrs old Female presents to ER via Ambulatory with complaints of Leg kb Swelling. 21:38 The patient presents with an injury, pain, swelling, tenderness. The complaints affect kb the right bolaños. Context: The problem was sustained outdoors, resulted from a mis-step, the patient can fully bear weight, the patient is able to ambulate, Problem is a result from a previous injury: No. Onset: The symptoms/episode began/occurred 2 week(s) ago. Modifying factors: The symptoms are alleviated by nothing. the symptoms are aggravated by nothing. Associated signs and symptoms: Pertinent positives: swelling, Pertinent negatives calf tenderness, fever, nausea, numbness, rash, tingling, vomiting, warmth, weakness. Treatment prior to arrival includes: no previous treatment. Severity of symptoms: At their worst the symptoms were mild, in the emergency department the symptoms are unchanged. The patient has not experienced similar symptoms in the past. The patient has not recently seen a physician. Pt reports she stepped in a hole and got a wound from a pipe in the ground 2 weeks ago. States it is getting better, but today she noticed an area of swelling that she was concerned about. Pt is on bactrim currently. Historical: - Allergies: 18:48 duracef; aj 18:48 Levaquin; aj 18:48 Morphine; aj 18:48 Tape; aj - Home Meds: 18:48 Norvasc 5 mg Oral tab 1 tab twice a day [Active]; aj - PMHx: 18:48 "sponge kidneys"; chronic back pain; Degenerative disc disease; hiatal hernia; aj Hypertension; ibs; Kidney stones; spinal stenosis; - PSHx: 18:48 ; Cholecystectomy; Appendectomy; RIGHT STENT; multiple kidney surg; aj - Immunization history:: Adult Immunizations up to date. - Social history:: Smoking status: Patient/guardian denies using tobacco. - Ebola Screening: : No symptoms or risks identified at this time. ROS: 21:34 Constitutional: Negative for fever, chills, and weight loss, Cardiovascular: Negative kb for chest pain, palpitations, and edema, Respiratory: Negative for shortness of breath, cough, wheezing, and pleuritic chest pain, Abdomen/GI: Negative for abdominal pain, nausea, vomiting, diarrhea, and constipation, Back: Negative for injury and pain, : Negative for injury, bleeding, discharge, and swelling, Neuro: Negative for headache, weakness, numbness, tingling, and seizure. 21:34 MS/extremity: Positive for injury or acute deformity, pain, swelling, tenderness, of the right bolaños. Exam: 21:34 Constitutional: This is a well developed, well nourished patient who is awake, alert, kb and in no acute distress. Head/Face: Normocephalic, atraumatic. Neck: Trachea midline, no thyromegaly or masses palpated, and no cervical lymphadenopathy. Supple, full range of motion without nuchal rigidity, or vertebral point tenderness. No Meningismus. Chest/axilla: Normal chest wall appearance and motion. Nontender with no deformity. No lesions are appreciated. Cardiovascular: Regular rate and rhythm with a normal S1 and S2. No gallops, murmurs, or rubs. Normal PMI, no JVD. No pulse deficits. Respiratory: Lungs have equal breath sounds bilaterally, clear to auscultation and percussion. No rales, rhonchi or wheezes noted. No increased work of breathing, no retractions or nasal flaring. Abdomen/GI: Soft, non-tender, with normal bowel sounds. No distension or tympany. No guarding or rebound. No evidence of tenderness throughout. Neuro: Awake and alert, GCS 15, oriented to person, place, time, and situation. Cranial nerves II-XII grossly intact. Motor strength 5/5 in all extremities. Sensory grossly intact. Cerebellar exam normal. Normal gait. 21:34 Musculoskeletal/extremity: Extremities: grossly normal except: noted in the right bolaños: pain, swelling, tenderness, small, healing wound with mild erythema , ROM: intact in all extremities, Circulation is intact in all extremities. Sensation intact. Weight bearing: able to fully bear weight. 21:34 Skin: small area noted to bolaños, possible hematoma. Vital Signs: 18:48 BP 135 / 82; Pulse 111; Resp 20; Temp 98.6; Pulse Ox 95% on R/A; Weight 95.25 kg; aj Height 5 ft. 5 in. (165.10 cm); 19:15 BP 117 / 89; Pulse 110; Resp 18; Pulse Ox 96% ; ea 20:54 BP 120 / 91; Pulse 90; Resp 18; Pulse Ox 99% on R/A; ea 21:30 BP 118 / 76; Pulse 80; Resp 18; Temp 98.2; Pulse Ox 99% on R/A; ea 18:48 Body Mass Index 34.95 (95.25 kg, 165.10 cm) aj Procedures: 21:06 I \\T\\ D: Incision and drainage was performed for an abscess of the right right bolaños rn Prepped with Betadine, Anesthetized with 2 ml's 1% Lidocaine. Incised with 18g needle. Drained small amount bloody fluid. Dressing: sterile 4x4 gauze, the patient tolerated the procedure well, using u/s guidance. MDM: 19:06 Patient medically screened. kb 21:07 ED course: Aspirated only blood, no purulence, using u/s guidance, improved symptoms rn and swelling. . 21:34 Data reviewed: vital signs, nurses notes. Data interpreted: Pulse oximetry: on room air kb is 99 %. Interpretation: normal. Counseling: I had a detailed discussion with the patient and/or guardian regarding: the historical points, exam findings, and any diagnostic results supporting the discharge/admit diagnosis, radiology results, the need for outpatient follow up, a family practitioner, to return to the emergency department if symptoms worsen or persist or if there are any questions or concerns that arise at home. 12/09 19:17 Order name: US Extremity Venous Unilateral Ltd; Complete Time: 20:11 kb 12/09 19:17 Order name: Tib Fib Right XRAY; Complete Time: 20:18 kb Administered Medications: 21:03 Drug: Lidocaine (1 %) 1 vials {Note: medication administered by provider.} Volume: 5 ea ml; Route: Infiltration; Disposition: 12/10 02:22 Co-signature as Attending Physician, Jian Steen MD. rn Disposition: 12/09/18 21:19 Discharged to Home. Impression: Hematoma, Local infection of the skin and subcutaneous tissue, unspecified. - Condition is Stable. - Discharge Instructions: Hematoma, Zhrz-[id number], Wound Infection, Gsdn-so-Slsg. - Prescriptions for Doxycycline Hyclate 100 mg Oral Tablet - take 1 tablet by ORAL route every 12 hours; 20 tablet. - Medication Reconciliation Form, Thank You Letter, Antibiotic Education, Prescription Opioid Use form. - Follow up: Emergency Department; When: As needed; Reason: Worsening of condition. Follow up: Private Physician; When: 2 - 3 days; Reason: Recheck today's complaints, Continuance of care, Re-evaluation by your physician. Signatures: Dispatcher [employer] EDMS Amelia Fuller, ANSWERING SERVICE OPERATOR-C ANSWERING SERVICE OPERATOR-CkCarmencita Anderson RN RN Jian [place] MD MD rn Smirch, Shelby, RN RN ss Antunez, Elena, RN RN ea Corrections: (The following items were deleted from the chart) 12/09 21:19 21:19 12/09/2018 21:19 Discharged to Home. Impression: Hematoma; Open wound of lower kb leg. Condition is Stable. Forms are Medication Reconciliation Form, Thank You Letter, Antibiotic Education, Prescription Opioid Use. Follow up: Emergency Department; When: As needed; Reason: Worsening of condition. Follow up: Private Physician; When: 2 - 3 days; Reason: Recheck today's complaints, Continuance of care, Re-evaluation by your physician. kb 21:41 21:19 12/09/2018 21:19 Discharged to Home. Impression: Hematoma; Local infection of the ea skin and subcutaneous tissue, unspecified. Condition is Stable. Forms are Medication Reconciliation Form, Thank You Letter, Antibiotic Education, Prescription Opioid Use. Follow up: Emergency Department; When: As needed; Reason: Worsening of condition. Follow up: Private Physician; When: 2 - 3 days; Reason: Recheck today's complaints, Continuance of care, Re-evaluation by your physician. kb
--- NOTE | 2018-12-09 21:20 | ER ---
Nurse's Notes [facility] Name: Radha Hu Age: 28 yrs Sex: Female : 1990 Arrival Date: 12/09/2018 Time: 18:36 Bed 24 Private MD: Diagnosis: Hematoma;Local infection of the skin and subcutaneous tissue, unspecified Presentation: 12/09 18:47 Presenting complaint: Patient states: Wound on right bolaños from trip and fall 2 weeks aj ago that is red, hot, and swollen today. Transition of care: patient was not received from another setting of care. Onset of symptoms was November 26, 2018. Risk Assessment: Do you want to hurt yourself or someone else? Patient reports no desire to harm self or others. Initial Sepsis Screen: Does the patient meet any 2 criteria? HR > 90 bpm. Does the patient have a suspected source of infection? No. Patient's initial sepsis screen is negative. Care prior to arrival: None. 18:47 Method Of Arrival: Ambulatory 18:47 Acuity: RENÉE 4 aj Triage Assessment: 18:48 General: Appears in no apparent distress. comfortable, Behavior is calm, cooperative, aj appropriate for age. Pain: Complains of pain in right bolaños. Neuro: Level of Consciousness is awake, alert, obeys commands, Oriented to person, place, time, situation, Appropriate for age. Respiratory: Airway is patent Respiratory effort is even, unlabored, Respiratory pattern is regular, symmetrical. Derm: Skin is intact, is healthy with good turgor, Skin is pink, warm \\T\\ dry. normal. Historical: - Allergies: 18:48 duracef; aj 18:48 Levaquin; aj 18:48 Morphine; aj 18:48 Tape; aj - Home Meds: 18:48 Norvasc 5 mg Oral tab 1 tab twice a day [Active]; aj - PMHx: 18:48 "sponge kidneys"; chronic back pain; Degenerative disc disease; hiatal hernia; aj Hypertension; ibs; Kidney stones; spinal stenosis; - PSHx: 18:48 ; Cholecystectomy; Appendectomy; RIGHT STENT; multiple kidney surg; aj - Immunization history:: Adult Immunizations up to date. - Social history:: Smoking status: Patient/guardian denies using tobacco. - Ebola Screening: : No symptoms or risks identified at this time. Screenin:35 Abuse screen: Denies threats or abuse. Nutritional screening: No deficits noted. ea Tuberculosis screening: No symptoms or risk factors identified. Fall Risk None identified. Assessment: 19:25 General: Appears in no apparent distress. Behavior is calm, cooperative, appropriate ea for age. Pain: Complains of pain in right bolaños. Neuro: Level of Consciousness is awake, alert, obeys commands, Oriented to person, place, time, situation. Cardiovascular: Patient's skin is warm and dry. Respiratory: Airway is patent Respiratory effort is even, unlabored, Respiratory pattern is regular, symmetrical. Derm: Skin temperature is warm swelling to right bolaños. 19:43 Reassessment: Pt taken to radiology. ea 19:43 Reassessment: Patient and/or family updated on plan of care and expected duration. Pain ea level reassessed. Patient is alert, oriented x 3, equal unlabored respirations, skin warm/dry/pink. 20:54 Reassessment: Patient and/or family updated on plan of care and expected duration. Pain ea level reassessed. Patient is alert, oriented x 3, equal unlabored respirations, skin warm/dry/pink. Provider at bedside. 21:37 Reassessment: Patient and/or family updated on plan of care and expected duration. Pain ea level reassessed. Patient is alert, oriented x 3, equal unlabored respirations, skin warm/dry/pink. Discharge instruction given to patient, verbalized the understanding of instruction. Vital Signs: 18:48 BP 135 / 82; Pulse 111; Resp 20; Temp 98.6; Pulse Ox 95% on R/A; Weight 95.25 kg; aj Height 5 ft. 5 in. (165.10 cm); 19:15 BP 117 / 89; Pulse 110; Resp 18; Pulse Ox 96% ; ea 20:54 BP 120 / 91; Pulse 90; Resp 18; Pulse Ox 99% on R/A; ea 21:30 BP 118 / 76; Pulse 80; Resp 18; Temp 98.2; Pulse Ox 99% on R/A; ea 18:48 Body Mass Index 34.95 (95.25 kg, 165.10 cm) ED Course: 18:36 Patient arrived in ED. as 18:43 Amelia Fuller FNP-C is [facility]. kb 18:43 Jian Steen MD is Attending Physician. kb 18:48 Triage completed. aj 18:48 Arm band placed on left wrist. Patient placed in waiting room. aj 19:32 Celia eBe, RN is Primary Nurse. ea 19:35 Patient has correct armband on for positive identification. Bed in low position. Call ea light in reach. Side rails up X2. 20:00 US Extremity Venous Unilateral Ltd In Process Unspecified. EDMS 20:07 Tib Fib Right XRAY In Process Unspecified. EDMS 21:20 drainage to right bolaños, pt tolerated well. ea 21:39 Patient did not have IV access during this emergency room visit. ea Administered Medications: 21:03 Drug: Lidocaine (1 %) 1 vials {Note: medication administered by provider.} Volume: 5 ea ml; Route: Infiltration; Outcome: 21:19 Discharge ordered by MD. kb 21:39 Discharged to home ambulatory. ea 21:39 Condition: stable 21:39 Discharge instructions given to patient, Instructed on discharge instructions, follow up and referral plans. medication usage, Demonstrated understanding of instructions, follow-up care, medications, Prescriptions given X 1. 21:41 Patient left the ED. ea Signatures: Dispatcher [employer] EDAmelia Lopez, PAPER PRODUCTS PRINTER-C PAPER PRODUCTS PRINTER-Carmencita Gomez, RN RN Kaylen Sorenson as Celia Bee, RN RN oksana Corrections: (The following items were deleted from the chart) 19:44 19:43 Reassessment: Pt taken to radiology ea ea 21:41 21:40 BP 118 / 76; Pulse 80bpm; Resp 18bpm; Pulse Ox 99% RA; Temp 98.2F; ea ea
== END 2018-12-09 21:41 | disposition home or self-care (01) ==
LOC: ER 18:32
PROC: 0J9N0ZZ Drainage of Right Lower Leg Subcutaneous Tissue and Fascia, Open Approach (ICD-10-PCS; principal; 2018-12-09)
DX: L02.415 Cutaneous abscess of right lower limb (principal); L08.9 Local infection of the skin and subcutaneous tissue, unspecified; W22.8XXA Striking against or struck by other objects, initial encounter; Y93.01 Activity, walking, marching and hiking; Y92.9 Unspecified place or not applicable; I10 Essential (primary) hypertension; Z88.1 Allergy status to other antibiotic agents; Z88.5 Allergy status to narcotic agent; Z91.048 Other nonmedicinal substance allergy status
CPT/HCPCS: 93971; 99283

== ENCOUNTER 2022-11-13 19:54 | Emergency (ER) | payer OTHER ==
--- OUTSIDE RECORDS SUMMARY | 2022-11-13 19:58 | XMS REPORT | Continuity of Care Document ---
:1990 Author Organization [facility] t Address [address] [place] [address] [address] [place] [address] Care Team Providers Name Role Phone Pcp, Patient Does Not Have A Primary Care Physician [id number] Dillon BETH, Estela Attending Clinician ESTELA JEAN-BAPTISTE Attending Clinician Unavailable KAILEY RIGGS Attending Clinician Unavailable Doctor Unassigned, [place] Attending Clinician Unavailable STAN Attending Clinician Unavailable MADISON LEON Attending Clinician Unavailable Madison Leon MD Attending Clinician GENIA CHATMAN Attending Clinician Unavailable Deandre Attending Clinician Unavailable BHAVIK LOZADA Attending Clinician Unavailable STAN Admitting Clinician Unavailable BRITTNI MADSEN Admitting Clinician Unavailable Deandre Admitting Clinician Unavailable ISABELA GARVIN Admitting Clinician Unavailable Payers Payer Name Policy Type Policy Number Effective Date Expiration Date S ource [place] [id number] [place] Problems Condition Condition Condition Status Onset Resolution Last Treating Co mments Source Name Details Category Date Date Treatment Clinician Date Benign Benign Disease Active Univers hypertensi hypertensi 2-10 it y of on with on with 00:00: [place] chronic chronic 00 Medical kidney kidney Branch disease disease Hyperglyce Hyperglyce Disease Active 2019- U nivers philippe philippe 6-05 ity of 00:00: [place] 00 Medical Branch Ureteral Ureteral Disease Active 2020-0 [facility] di stone with stone with 5-28 st hydronephr hydronephr 00:00: [facility] osis osis 00 l Lumbar Lumbar Disease Active 2020-0 Univers hernia hernia 4-09 ity of 00:00: [place] 00 Medical Branch 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 4-09 it y of s s 00:00: [place] 00 Medical Branch Insomnia Insomnia Disease Active 2020-0 Unive rs due to due to 2-16 ity of medical medical 00:00: [place] condition condition 00 [facility] Branch Allergic Allergic Disease Active 2019-0 Unive rs rhinitis rhinitis 8-28 ity of due to due to 00:00: [place] pollen pollen 00 Medical Branch Chronic Chronic Disease Active 2019-0 Univers pain pain 8-28 ity of disorder disorder 00:00: [place] 00 Medical Branch Irritable Irritable Disease Active 2019-0 Uni vers bowel bowel 8-14 ity of syndrome syndrome 00:00: [place] 00 Medical Branch Localized Localized Disease Active 2019-0 Uni vers edema edema 8-14 ity of 00:00: [place] 00 Medical Branch Neck pain Neck pain Disease Active 2019-0 Uni vers 8-14 ity of 00:00: [place] 00 Medical Branch Other Other Disease Active 2019-0 Univers lactose lactose 8-14 ity of intoleranc intoleranc 00:00: [place] 00 [facility] Recurrent Recurrent Disease Active 2019-0 Uni vers infective infective 8-14 ity of cystitis cystitis 00:00: [place] 00 Medical Branch Chronic Chronic Disease Active 2019-0 Univers low back low back 8-14 ity of pain pain 00:00: [place] 00 Medical Branch Fibrocysti Fibrocysti Disease Active 2019-0 U nivers c disease c disease 8-14 ity of of breast of breast 00:00[place] Gastroesop Gastroesop Disease Active 2019-0 U nivers hageal hageal 8-14 ity of reflux reflux 00:00: [place] disease disease 00 Medical Branch Hypokalemi Hypokalemi Disease Active 2019-0 U nivers a a 8-14 ity of 00:00: [place] 00 Medical Branch 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 8-14 it y of itis itis 00:00: [place] 00 Medical Branch Ureteral Ureteral Disease Active 2019-0 Unive rs stone stone 6-18 ity of 00:00: [place] 00 Medical Branch Body mass Body mass Disease Active Uni vers index index 7-06 ity of (BMI) (BMI) 00:00: [place] 32.0-32.9, 32.0-32.9, 00 Me dical adult adult Branch Kidney Kidney Disease Active Univers stone stone 705 ity of 00:00: [place] 00 Medical Branch 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 00:00: [place] 00 Medical Branch 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:[place] both 00 Medical kidneys kidneys Branch Allergies, Adverse Reactions, Alerts Allergy Allergy Status Severity Reaction(s) Onset Inactive Treating Comm ents Source Name Type Date Date Clinician Cefadrox Propensi Active Hives Method i il ty to 3-19 st adverse 00:00: [facility] reaction 00 l s to drug Levoflox Propensi Active Hives Method i acin ty to 3-19 st adverse 00:00: [facility]osp[facility] reaction 00 l s to drug Morphine Propensi Active Anaphylaxis M ethodi ty to 3-19 st adverse 00:00: [facility]osp[facility] reaction 00 l s to drug Codeine Propensi Active Itching 2016-05 Univer s ty to 0-20 ity of adverse 00:00: [place] reaction 00 Medical s Branch CODEINE DRUG Active ITCHING 2016-05 Univers INGREDI 0-20 ity of 00:00: [place] 00 Medical Branch Adhesive Propensi Active Rash 2015-05 Univer s ty to 0-04 ity of adverse 00:00: [place] reaction 00 Medical s Branch Cefadrox Propensi Active Hives 2015-05 Univer s il ty to 0-04 ity of adverse 00:00: [place] reaction 00 Medical s Branch ADHESIVE Drug Active Rash 2015-05 Univers Class 0-04 ity of 00:00: [place] 00 Medical Branch Levoflox Propensi Active Hives 2015-05 Univer s acin ty to 0-04 ity of adverse 00:00: [place] reaction 00 Medical s Branch Morphine Propensi Active Other - See 2015-05 Phlebiti s Univers ty to comments 0-04 . ity of adverse 00:00: [place] reaction 00 Medical s Branch CEFADROX DRUG Active Hives 2015-05 Univers [place] INGREDI 0-04 ity of 00:00: [place] 00 Medical Branch LEVOFLOX DRUG Active Hives 2015-05 Univers ACIN INGREDI 0-04 ity of 00:00: [place] 00 Medical Branch MORPHINE DRUG Active Other-Cmnt 2015-05 Univ ers INGREDI 0-04 ity of 00:00: [place] 00 Medical Branch Adhesive Propensi Active Rash 2015-05 Univer s ty to 0-04 ity of adverse 00:00: [place] reaction 00 Medical s Branch Social History Social Habit Start Date Stop Date Quantity Comments Source Gender identity [facility] Tobacco use and 2022-10-31 2022-10-31 Smokeless Universit y of exposure 00:00:00 00:00:00 tobacco non-user [facility] History of Social 2022-07-11 2022-07-[address] function 00:00:00 00:00:00 Hospital Exposure to 2021-10-27 2021-11-06 Not sure [facility] SARS-CoV-2 (event) 00:00:00 14:13:00 [facility] Alcohol intake 2021-07-27 2021-07-27 Current drinker [facility] 00:00:00 00:00:00 of [employer] (finding) Alcohol Comment 2017-07-21 2017-07-21 social [facility]00 [facility] Sex Assigned At [birth year] [facility] 00:[facility]00 [facility] Smoking Status Start Date Stop Date Source Never smoked tobacco [facility] [place] [facility] Medications Ordered Filled Start Stop Current Ordering Indication Dosage Frequency Signature Comments Components Source Medication Medication Date Date Medication? Clinician (SIG) Name Name hydroCHLORO 0 Yes 12.5mg Take 0.5 Univers thiazide 25 6-29 tablets by it y of mg tablet 11:33: mouth in [facility] 12 the Medical morning. Branch amLODIPine 2022-0 Yes 5mg Take 1 Unive rs 5 mg tablet 6-29 tablet by ity of 11:33: mouth in [place] [address] the Medical morning Branch and 1 tablet in the evening. hydroCHLORO 2022-0 Yes 12.5mg Take 0.5 Univers thiazide 25 6-29 tablets by it y of mg tablet 11:33: mouth in [facility] 12 the Medical morning. Branch amLODIPine 2023-0 Yes 5mg Take 1 Unive rs 5 mg tablet 6-29 tablet by ity of 11:33: mouth in [place] [address] the Medical morning Branch and 1 tablet in the evening. hydroCHLORO 2023-0 Yes 12.5mg Take 0.5 Univers thiazide 25 6-29 tablets by it y of mg tablet 11:33: mouth in [place] [address] the Medical morning. Branch amLODIPine 2023-0 Yes 5mg Take 1 Unive rs 5 mg tablet 6-29 tablet by ity of 11:33: mouth in [place] [address] the Medical morning Branch and 1 tablet in the evening. hydroCHLORO 2023-0 Yes 12.5mg Take 0.5 Univers thiazide 25 6-29 tablets by it y of mg tablet 11:33: mouth in [place] [address] the Medical morning. Branch amLODIPine 2023-0 Yes 5mg Take 1 Unive rs 5 mg tablet 6-29 tablet by ity of 11:33: mouth in [place] [address] the Medical morning Branch and 1 tablet in the evening. hydroCHLORO 2023-0 Yes 12.5mg Take 0.5 Univers thiazide 25 6-29 tablets by it y of mg tablet 11:33: mouth in [place] [address] the Medical morning. Branch amLODIPine 2023-0 Yes 5mg Take 1 Unive rs 5 mg tablet 6-29 tablet by ity of 11:33: mouth in [place] [address] the Medical morning Branch and 1 tablet in the evening. SERTraline 2023-0 2024- No 200mg Take 2 Uni vers 100 mg 2- tablets by ity of tablet 00:00: 05:59 mouth. [place] 00 :00 Medical Branch SERTraline 2023-0 2024- No 200mg Take 2 Uni vers 100 mg 2- tablets by ity of tablet 00:00: 05:59 mouth. [place] 00 :00 Medical Branch SERTraline 2023-0 2024- No 200mg Take 2 Uni vers 100 mg 2- tablets by ity of tablet 00:00: 05:59 mouth. [place] 00 :00 [facility] Branch SERTraline 2023-0 2024- No 200mg Take 2 Uni vers 100 mg 2- tablets by ity of tablet 00:00: 05:59 mouth. [place] 00 :00 [facility] Branch SERTraline 2023-0 2024- No 200mg Take 2 Uni vers 100 mg 06-05 tablets by ity of tablet 00:00: 05:59 mouth. [place] 00 :00 Medical Branch FENTanyl PF 2021- No 50ug 50 mcg, Un olivia (SUBLIMAZE 11-07 Slow IV ity o f (PF)) 02:30: 01:57 Push, [place] injection 00 :00 ONCE, 1 Medical 50 mcg dose, On Branch Fri11/06/21 at 2130, Routine famotidine 2021- No 20mg 20 mg, Univ ers (PEPCID 11-07 Slow IV ity of (PF)) 02:30: 01:56 Push, [place] injection 00 :00 ONCE, 1 Medical 20 mg dose, On Branch Fri11/06/21 at 2130, JANNETH ondansetron 2021- No 4mg 4 mg, Slow Univers (ZOFRAN 11-07 IV Push, ity of (PF)) 01:30: 01:55 ONCE, 1 [place] injection 4 00 :00 dose, On Medi ayana mg Fri11/06/21 Branch at 2030, JANNETH NaCl 0.9% 2021- No 1000mL at 999 Uni vers (NS) bolus 11-07 mL/hr, ity of infusion 01:28: 03:04 1,000 mL, [place] as 1,000 mL 00 :00 IV Medical Infusion, Branch ONCE, 1 dose, On Fri11/06/21 at 2030, JANNETH ketorolac 2021- No 30mg 30 mg, Unive rs (TORADOL) 11-07 Slow IV ity of injection 00:45: 01:04 Push, [place] 30 mg 00 :00 ONCE, 1 Medical dose, On Branch Fri11/06/21 at 1945, Routine NaCl 0.9% 2021- No 1000mL at 999 Uni vers (NS) bolus 11-06 07-06 mL/hr, ity of infusion 21:15: 03:03 1,000 mL, [place] as 1,000 mL 00 :00 IV Medical Infusion, Branch ONCE, 1 dose, On Fri11/06/21 at 1615, JANNTEH ibuprofen Yes [id number] 400mg Take 2 U nivers (MOTRIN IB) 7-05 tablets by it y of 200 mg 00:00: mouth [place] tablet 00 every 6 Medical (six) Branch hours as needed for Pain (scale 1-3) for up to 30 doses. albuterol Yes [id number] 2{puff} Inhale 2 Univers 90 7-05 Puffs ity of mcg/actuati 00:00: every 6 [place] as on inhaler 00 (six) Medical hours as Branch needed for Wheezing or Shortness of Breath. ondansetron Yes [id number] 4mg Take 1 Univers 4 mg 7-05 tablet by ity of disintegrat 00:00: mouth [place] ing tablet 00 every 8 Medica l (eight) Branch hours as needed for Nausea and Vomiting (N/V) for up to 10 doses. ibuprofen Yes [id number] 400mg Take 2 U nivers (MOTRIN IB) 7-05 tablets by it y of 200 mg 00:00: mouth [place] tablet 00 every 6 Medical (six) Branch hours as needed for Pain (scale 1-3) for up to 30 doses. albuterol Yes [id number] 2{puff} Inhale 2 Univers 90 7-05 Puffs ity of mcg/actuati 00:00: every 6 [place] as on inhaler 00 (six) Medical hours as Branch needed for Wheezing or Shortness of Breath. ondansetron Yes [id number] 4mg Take 1 Univers 4 mg 7-05 tablet by ity of disintegrat 00:00: mouth [place] ing tablet 00 every 8 Medica l (eight) Branch hours as needed for Nausea and Vomiting (N/V) for up to 10 doses. ibuprofen Yes [id number] 400mg Take 2 U nivers (MOTRIN IB) 7-05 tablets by it y of 200 mg 00:00: mouth [place] tablet 00 every 6 Medical (six) Branch hours as needed for Pain (scale 1-3) for up to 30 doses. albuterol Yes [id number] 2{puff} Inhale 2 Univers 90 7-05 Puffs ity of mcg/actuati 00:00: every 6 [place] as on inhaler 00 (six) Medical hours as Branch needed for Wheezing or Shortness of Breath. ondansetron 0 Yes [id number] 4mg Take 1 Univers 4 mg 7-05 tablet by ity of disintegrat 00:00: mouth [place] ing tablet 00 every 8 Medica l (eight) Branch hours as needed for Nausea and Vomiting (N/V) for up to 10 doses. ibuprofen 2021-0 Yes [id number] 400mg Take 2 U nivers (MOTRIN IB) 7-05 tablets by it y of 200 mg 00:00: mouth [place] tablet 00 every 6 Medical (six) Branch hours as needed for Pain (scale 1-3) for up to 30 doses. albuterol 2021-0 Yes [id number] 2{puff} Inhale 2 Univers 90 7-05 Puffs ity of mcg/actuati 00:00: every 6 [place] on inhaler 00 (six) Medical hours as Branch needed for Wheezing or Shortness of Breath. ondansetron 2021-0 Yes [id number] 4mg Take 1 Univers 4 mg 7-05 tablet by ity of disintegrat 00:00: mouth [place] ing tablet 00 every 8 Medica l (eight) Branch hours as needed for Nausea and Vomiting (N/V) for up to 10 doses. ibuprofen 0 Yes [id number] 400mg Take 2 U nivers (MOTRIN IB) 7-05 tablets by it y of 200 mg 00:00: mouth [place] tablet 00 every 6 Medical (six) Branch hours as needed for Pain (scale 1-3) for up to 30 doses. albuterol 2021-0 Yes [id number] 2{puff} Inhale 2 Univers 90 7-05 Puffs ity of mcg/actuati 00:00: every 6 [place] as on inhaler 00 (six) Medical hours as Branch needed for Wheezing or Shortness of Breath. ondansetron 2021-0 Yes [id number] 4mg Take 1 Univers 4 mg 7-05 tablet by ity of disintegrat 00:00: mouth [place] ing tablet 00 every 8 Medica l (eight) Branch hours as needed for Nausea and Vomiting (N/V) for up to 10 doses. ibuprofen 2021-0 Yes [id number] 400mg Take 2 U nivers (MOTRIN IB) 7-05 tablets by it y of 200 mg 00:00: mouth [place] tablet 00 every 6 Medical (six) Branch hours as needed for Pain (scale 1-3) for up to 30 doses. albuterol Yes [id number] 2{puff} Inhale 2 Univers 90 7-05 Puffs ity of mcg/actuati 00:00: every 6 [place] as on inhaler 00 (six) Medical hours as Branch needed for Wheezing or Shortness of Breath. ondansetron Yes [id number] 4mg Take 1 Univers 4 mg 7-05 tablet by ity of disintegrat 00:00: mouth [place] ing tablet 00 every 8 Medica l (eight) Branch hours as needed for Nausea and Vomiting (N/V) for up to 10 doses. tamsulosin Yes [id number] .4mg Take 1 U nivers 0.4 mg 24 7-05 capsule by ity of hr capsule 00:00: mouth at [place] 00 bedtime. Medical Branch ibuprofen Yes [id number] 400mg Take 2 U nivers (MOTRIN IB) 7-05 tablets by it y of 200 mg 00:00: mouth [place] tablet 00 every 6 Medical (six) Branch hours as needed for Pain (scale 1-3) for up to 30 doses. albuterol Yes [id number] 2{puff} Inhale 2 Univers 90 7-05 Puffs ity of mcg/actuati 00:00: every 6 [place] as on inhaler 00 (six) Medical hours as Branch needed for Wheezing or Shortness of Breath. ondansetron Yes [id number] 4mg Take 1 Univers 4 mg 7-05 tablet by ity of disintegrat 00:00: mouth [place] ing tablet 00 every 8 Medica l (eight) Branch hours as needed for Nausea and Vomiting (N/V) for up to 10 doses. tamsulosin 2022- No [id number] .4mg Take 1 Univers 0.4 mg 24 7-05 06-22 capsule by ity of hr capsule 00:00: 00:00 [place] 00 :00 bedtime. Medical Branch tamsulosin 2022- No [id number] .4mg Take 1 Univers 0.4 mg 24 7-05 06-22 capsule by ity of hr capsule 00:00: 00:00 [place] :00 bedtime. Medical Branch HYDROcodone 2021- No [id number] 1{tbl} Take 1 U nivers -acetaminop 11-06 tablet by it y of hen (NORCO) 00:00: 04:59 mouth [place] 10-325 mg 00 :00 every 8 Medical tablet (eight) Branch hours as needed for Pain (scale 1-3) for up to 15 days. Indication s: acute pain famotidine 2021- No [id number] 20mg Take 1 Univers (PEPCID) 20 11-06 tablet by it y of mg tablet 00:00: 04:59 mouth 2 [place] 00 :00 (two) Medical times Branch daily for 30 doses. metoclopram 2021-0 Yes 10mg Take 1 Univ ers florecita HCl 10 3-24 tablet by ity of mg tablet 00:00: mouth. [address] metoclopram 2021-0 Yes 10mg Take 1 Univ ers florecita HCl 10 3-24 tablet by ity of mg tablet 00:00: mouth. [address] Branch metoclopram 2021-0 Yes 10mg Take 1 Univ ers florecita HCl 10 3-24 tablet by ity of mg tablet 00:00: mouth. [address] Branch metoclopram 2021-0 Yes 10mg Take 1 Univ ers florecita HCl 10 3-24 tablet by ity of mg tablet 00:00: mouth. [address] Branch metoclopram 2021-0 Yes 10mg Take 1 Univ ers florecita HCl 10 3-24 tablet by ity of mg tablet 00:00: mouth. [address] metoclopram 2021-0 Yes 10mg Take 1 Univ ers florecita HCl 10 3-24 tablet by ity of mg tablet 00:00: mouth. [address] metoclopram 2021-0 Yes 10mg Q6H Take 1 Meth chyna florecita 3-24 tablet (10 st (REGLAN) 10 00:00: mg total) H [facility]spita MG tablet 00 by mouth l every 6 (six) hours as needed (nausea). amLODIPine Yes 5mg Q.5D Take 5 mg Me thodi (NORVASC) 5 8-[address] mg tablet 00:00: (two) Hospita 00 times a l day. escitalopra Yes 20mg Take 20 mg Univers m oxalate 6-19 by mouth ity of (LEXAPRO) 21:35: daily. [place] 20 mg 17 Medical tablet Branch hydroCHLORO Yes 12.5mg Take 12.5 Univers thiazide 25 6-19 mg by ity of mg tablet 21:35: mouth [place] 17 daily. Medical Branch busPIRone Yes 15mg Take 15 mg Un olivia 15 mg 6-19 by mouth 2 ity of tablet 21:35: (two) [place] 17 times Medical daily. Branch amLODIPine Yes 5mg Take 5 mg Un olivia (NORVASC) 5 6-19 by mouth 2 it y of mg tablet 21:35: (two) [place] 17 times Medical daily. Branch escitalopra Yes 20mg Take 20 mg Univers m oxalate 6-19 by mouth ity of (LEXAPRO) 21:35: daily. [place] 20 mg 17 Medical tablet Branch busPIRone Yes 15mg Take 15 mg Un olivia 15 mg 6-19 by mouth 2 ity of tablet 21:35: (two) [place] 17 times Medical daily. Branch escitalopra Yes 20mg Take 20 mg Univers m oxalate 6-19 by mouth ity of (LEXAPRO) 21:35: daily. [place] 20 mg 17 Medical tablet Branch busPIRone Yes 15mg Take 15 mg Un olivia 15 mg 6-19 by mouth 2 ity of tablet 21:35: (two) [place] 17 times Medical daily. Branch escitalopra Yes 20mg Take 20 mg Univers m oxalate 6-19 by mouth ity of (LEXAPRO) 21:35: daily. [place] 20 mg 17 Medical tablet Branch busPIRone Yes 15mg Take 15 mg Un olivia 15 mg 6-19 by mouth 2 ity of tablet 21:35: (two) [place] 17 times Medical daily. Branch escitalopra Yes 20mg Take 20 mg Univers m oxalate 6-19 by mouth ity of (LEXAPRO) 21:35: daily. [place] 20 mg 17 Medical tablet Branch busPIRone Yes 15mg Take 15 mg Un olivia 15 mg 6-19 by mouth 2 ity of tablet 21:35: (two) [place] 17 times Medical daily. Branch escitalopra 2019-0 Yes 20mg Take 20 mg Univers m oxalate 6-19 by mouth ity of (LEXAPRO) 21:35: daily. [place] 20 mg 17 Medical tablet Branch busPIRone Yes 15mg Take 15 mg Un olivia 15 mg 6-19 by mouth 2 ity of tablet 21:35: (two) [place] 17 times Medical daily. Branch escitalopra Yes 20mg Take 20 mg Univers m oxalate 6-19 by mouth ity of (LEXAPRO) 21:35: daily. [place] 20 mg 17 Medical tablet Branch hydroCHLORO Yes 12.5mg Take 12.5 Univers thiazide 25 6-19 mg by ity of mg tablet 21:35: mouth [place] 17 daily. Medical Branch busPIRone Yes 15mg Take 15 mg Un olivia 15 mg 6-19 by mouth 2 ity of tablet 21:35: (two) [place] 17 times Medical daily. Branch amLODIPine Yes 5mg Take 5 mg Un [place] (NORVASC) 5 6-19 by mouth 2 it y of mg tablet 21:35: (two) [place] 17 times Medical daily. Branch HYDROcodone Yes [id number] 1{tbl} Take 1 Univers -acetaminop 6-19 tablet by ity of hen 5-325 00:00: mouth [place] mg tablet 00 every 6 Medical (six) Branch hours as needed for Pain (scale 4-6) or Pain (scale 7-10). HYDROcodone Yes [id number] 1{tbl} Take 1 Univers -acetaminop 6-19 tablet by ity of hen 5-325 00:00: mouth [place] mg tablet 00 every 6 Medical (six) Branch hours as needed for Pain (scale 4-6) or Pain (scale 7-10). HYDROcodone Yes [id number] 1{tbl} Take 1 Univers -acetaminop 6-19 tablet by ity of hen 5-325 00:00: mouth [place] mg tablet 00 every 6 Medical (six) Branch hours as needed for Pain (scale 4-6) or Pain (scale 7-10). HYDROcodone Yes [id number] 1{tbl} Take 1 Univers -acetaminop 6-19 tablet by ity of hen 5-325 00:00: mouth [place] mg tablet 00 every 6 Medical (six) Branch hours as needed for Pain (scale 4-6) or Pain (scale 7-10). HYDROcodone 2019-0 Yes [id number] 1{tbl} Take 1 Univers -acetaminop 6-19 tablet by ity of hen 5-325 00:00: mouth [place] mg tablet 00 every 6 Medical (six) Branch hours as needed for Pain (scale 4-6) or Pain (scale 7-10). HYDROcodone 2019-0 Yes [id number] 1{tbl} Take 1 Univers -acetaminop 6-19 tablet by ity of hen 5-325 00:00: mouth [place] mg tablet 00 every 6 Medical (six) Branch hours as needed for Pain (scale 4-6) or Pain (scale 7-10). HYDROcodone 2019-0 Yes [id number] 1{tbl} Take 1 Univers -acetaminop 6-19 tablet by ity of hen 5-325 00:00: mouth [place] mg tablet 00 every 6 Medical (six) Branch hours as needed for Pain (scale 4-6) or Pain (scale 7-10). ondansetron 2019-0 Yes [id number] 4mg Take 1 Univers (ZOFRAN 6-15 tablet by ity of ODT) 4 mg 00:00: mouth [place] disintegrat 00 every 8 Medic al ing tablet (eight) Branch hours as needed for Nausea and Vomiting (N/V). HYDROcodone 2018-0 Yes [id number] 1{tbl} Take 1-2 Univers -acetaminop 6-15 tablets by it y of hen 5-325 00:00: mouth [place] mg tablet 00 every 6 Medical (six) Branch hours as needed for Pain (scale 1-3). ketorolac 2019-0 Yes [id number] 10mg Take 1 U nivers 10 mg 6-15 tablet by ity of tablet 00:00: mouth [place] 00 every 6 Medical (six) Branch hours as needed for Pain (scale 1-3). ondansetron 2019-0 Yes [id number] 4mg Take 1 Univers (ZOFRAN 6-15 tablet by ity of ODT) 4 mg 00:00: mouth [place] disintegrat 00 every 8 Medic al ing tablet (eight) Branch hours as needed for Nausea and Vomiting (N/V). HYDROcodone 2019-0 Yes [id number] 1{tbl} Take 1-2 Univers -acetaminop 6-15 tablets by it y of hen 5-325 00:00: mouth [place] mg tablet 00 every 6 Medical (six) Branch hours as needed for Pain (scale 1-3). ketorolac 2019-0 Yes [id number] 10mg Take 1 U nivers 10 mg 6-15 tablet by ity of tablet 00:00: mouth [place] 00 every 6 Medical (six) Branch hours as needed for Pain (scale 1-3). ondansetron 2019- Yes [id number] 4mg Take 1 Univers (ZOFRAN 6-15 tablet by ity of ODT) 4 mg 00:00: mouth [place] disintegrat 00 every 8 Medic al ing tablet (eight) Branch hours as needed for Nausea and Vomiting (N/V). HYDROcodone 2019- Yes [id number] 1{tbl} Take 1-2 Univers -acetaminop 6-15 tablets by it y of hen 5-325 00:00: mouth [place] mg tablet 00 every 6 Medical (six) Branch hours as needed for Pain (scale 1-3). ketorolac 2019-0 Yes [id number] 10mg Take 1 U nivers 10 mg 6-15 tablet by ity of tablet 00:00: mouth [place] 00 every 6 Medical (six) Branch hours as needed for Pain (scale 1-3). ondansetron 2019-0 Yes [id number] 4mg Take 1 Univers (ZOFRAN 6-15 tablet by ity of ODT) 4 mg 00:00: mouth [place] disintegrat 00 every 8 Medic al ing tablet (eight) Branch hours as needed for Nausea and Vomiting (N/V). HYDROcodone 2019-0 Yes [id number] 1{tbl} Take 1-2 Univers -acetaminop 6-15 tablets by it y of hen 5-325 00:00: mouth [place] mg tablet 00 every 6 Medical (six) Branch hours as needed for Pain (scale 1-3). ketorolac 2019-0 Yes [id number] 10mg Take 1 U nivers 10 mg 6-15 tablet by ity of tablet 00:00: mouth [place] 00 every 6 Medical (six) Branch hours as needed for Pain (scale 1-3). ondansetron 2019-0 Yes [id number] 4mg Take 1 Univers (ZOFRAN 6-15 tablet by ity of ODT) 4 mg 00:00: mouth [place] disintegrat 00 every 8 Medic al ing tablet (eight) Branch hours as needed for Nausea and Vomiting (N/V). HYDROcodone 2019- Yes [id number] 1{tbl} Take 1-2 Univers -acetaminop 6-15 tablets by it y of hen 5-325 00:00: mouth [place] mg tablet 00 every 6 Medical (six) Branch hours as needed for Pain (scale 1-3). ketorolac 2019-0 Yes [id number] 10mg Take 1 U nivers 10 mg 6-15 tablet by ity of tablet 00:00: mouth [place] 00 every 6 Medical (six) Branch hours as needed for Pain (scale 1-3). ondansetron 2018- Yes [id number] 4mg Take 1 Univers (ZOFRAN 6-15 tablet by ity of ODT) 4 mg 00:00: mouth [place] disintegrat 00 every 8 Medic al ing tablet (eight) Branch hours as needed for Nausea and Vomiting (N/V). HYDROcodone 2018- Yes [id number] 1{tbl} Take 1-2 Univers -acetaminop 6-15 tablets by it y of hen 5-325 00:00: mouth [place] mg tablet 00 every 6 Medical (six) Branch hours as needed for Pain (scale 1-3). ketorolac 2018-0 Yes [id number] 10mg Take 1 U nivers 10 mg 6-15 tablet by ity of tablet 00:00: mouth [place] 00 every 6 Medical (six) Branch hours as needed for Pain (scale 1-3). tamsulosin 2018-0 Yes [id number] .4mg Take 1 Univers 0.4 mg 24 6-15 capsule by ity of hr capsule 00:00: mouth at [place] 00 bedtime. Medical Branch ondansetron 2019-0 Yes [id number] 4mg Take 1 Univers (ZOFRAN 6-15 tablet by ity of ODT) 4 mg 00:00: mouth [place] disintegrat 00 every 8 Medic al ing tablet (eight) Branch hours as needed for Nausea and Vomiting (N/V). HYDROcodone 2018- Yes [id number] 1{tbl} Take 1-2 Univers -acetaminop 6-15 tablets by it y of hen 5-325 00:00: mouth [place] mg tablet 00 every 6 Medical (six) Branch hours as needed for Pain (scale 1-3). ketorolac Yes [id number] 10mg Take 1 U nivers 10 mg 6-15 tablet by ity of tablet 00:00: mouth [place] 00 every 6 Medical (six) Branch hours as needed for Pain (scale 1-3). tamsulosin 2022- No [id number] .4mg Take 1 Univers 0.4 mg 24 6-15 -22 capsule by ity of hr capsule 00:00[place] bedtime. [facility] tamsulosin 2022- No [id number] .4mg Take 1 [facility] 0.4 mg 24 6-15 -22 capsule by ity of hr capsule 00:00: [place] bedtime. [facility] aMILoride 5 Yes TK 2 TS PO Univers mg tablet 3-29 BID ity of 00:00: Medical Branch aMILoride 5 Yes TK 2 TS PO Univers mg tablet 3-29 BID ity of 00:00: Medical Branch aMILoride 5 Yes TK 2 TS PO Univers mg tablet 3-29 BID ity of 00:00: Medical Branch aMILoride 5 Yes TK 2 TS PO Univers mg tablet 3-29 BID ity of 00:00: Medical Branch aMILoride 5 Yes TK 2 TS PO Univers mg tablet 3-29 BID ity of 00:00: 00 Medical Branch aMILoride 5 Yes TK 2 TS PO Univers mg tablet 3-29 BID ity of 00:00: Medical Branch aMILoride 5 Yes TK 2 TS PO Univers mg tablet 3-29 BID ity of 00:00: 00 Medical Branch traMADOL Yes [id number] 50mg Take 1 Un olivia (ULTRAM) 50 1-14 tablet by ity of mg tablet 00:00: mouth [place] 00 every 6 Medical (six) Branch hours as needed for Pain (scale 7-10). proMETHazin Yes [id number] 25mg Take 1 Univers e 25 mg 1-14 tablet by ity of tablet 00:00: mouth [place] 00 every 6 Medical (six) Branch hours as needed for Nausea and Vomiting (N/V). tamsulosin 2019-0 Yes [id number] .4mg Take 1 Univers 0.4 mg 24 1-14 capsule by ity of hr capsule 00:00: mouth [place] 00 bedtime. Medical Branch traMADOL 2019-0 Yes [id number] 50mg Take 1 Un olivia (ULTRAM) 50 1-14 tablet by ity of mg tablet 00:00: mouth [place] 00 every 6 Medical (six) Branch hours as needed for Pain (scale 7-10). proMETHazin 2019-0 Yes [id number] 25mg Take 1 Univers e 25 mg 1-14 tablet by ity of tablet 00:00: mouth [place] 00 every 6 Medical (six) Branch hours as needed for Nausea and Vomiting (N/V). tamsulosin 2019-0 Yes [id number] .4mg Take 1 Univers 0.4 mg 24 1-14 capsule by ity of hr capsule 00:00: mouth at [place] 00 bedtime. Medical Branch traMADOL 0 Yes [id number] 50mg Take 1 Un olivia (ULTRAM) 50 1-14 tablet by ity of mg tablet 00:00: mouth [place] 00 every 6 Medical (six) Branch hours as needed for Pain (scale 7-10). proMETHazin 2019-0 Yes [id number] 25mg Take 1 Univers e 25 mg 1-14 tablet by ity of tablet 00:00: mouth [place] 00 every 6 Medical (six) Branch hours as needed for Nausea and Vomiting (N/V). tamsulosin 2019-0 Yes [id number] .4mg Take 1 Univers 0.4 mg 24 1-14 capsule by ity of hr capsule 00:00: mouth at [place] 00 bedtime. Medical Branch traMADOL 2019-0 Yes [id number] 50mg Take 1 Un olivia (ULTRAM) 50 1-14 tablet by ity of mg tablet 00:00: mouth [place] 00 every 6 Medical (six) Branch hours as needed for Pain (scale 7-10). proMETHazin 2019-0 Yes [id number] 25mg Take 1 Univers e 25 mg 1-14 tablet by ity of tablet 00:00: mouth [place] 00 every 6 Medical (six) Branch hours as needed for Nausea and Vomiting (N/V). tamsulosin 2019-0 Yes [id number] .4mg Take 1 Univers 0.4 mg 24 1-14 capsule by ity of hr capsule 00:00: mouth at [place] 00 bedtime. Medical Branch traMADOL 2019-0 Yes [id number] 50mg Take 1 Un olivia (ULTRAM) 50 1-14 tablet by ity of mg tablet 00:00: mouth [place] 00 every 6 Medical (six) Branch hours as needed for Pain (scale 7-10). proMETHazin 2019-0 Yes [id number] 25mg Take 1 Univers e 25 mg 1-14 tablet by ity of tablet 00:00: mouth [place] 00 every 6 Medical (six) Branch hours as needed for Nausea and Vomiting (N/V). tamsulosin 2019-0 Yes [id number] .4mg Take 1 Univers 0.4 mg 24 1-14 capsule by ity of hr capsule 00:00: mouth at [place] 00 bedtime. Medical Branch traMADOL 0 Yes [id number] 50mg Take 1 Un olivia (ULTRAM) 50 1-14 tablet by ity of mg tablet 00:00: mouth [place] 00 every 6 Medical (six) Branch hours as needed for Pain (scale 7-10). proMETHazin 2019-0 Yes [id number] 25mg Take 1 Univers e 25 mg 1-14 tablet by ity of tablet 00:00: mouth [place] 00 every 6 Medical (six) Branch hours as needed for Nausea and Vomiting (N/V). tamsulosin 2019-0 Yes [id number] .4mg Take 1 Univers 0.4 mg 24 1-14 capsule by ity of hr capsule 00:00: mouth [place] 00 bedtime. Medical Branch traMADOL 2019-0 Yes [id number] 50mg Take 1 Un olivia (ULTRAM) 50 1-14 tablet by ity of mg tablet 00:00: mouth [place] 00 every 6 Medical (six) Branch hours as needed for Pain (scale 7-10). proMETHazin 2019-0 Yes [id number] 25mg Take 1 Univers e 25 mg 1-14 tablet by ity of tablet 00:00: mouth [place] 00 every 6 Medical (six) Branch hours as needed for Nausea and Vomiting (N/V). tamsulosin 2019-0 Yes [id number] .4mg Take 1 Univers 0.4 mg 24 1-14 capsule by ity of hr capsule 00:00: mouth at [place] 00 bedtime. Medical Branch ibuprofen 2018-0 Yes 800mg Take 1 Unive rs 800 mg 1-03 tablet by ity of tablet 00:00: mouth [place] 00 every 6 Medical (six) Branch hours as needed for Pain (scale 1-3) for up to 30 doses. ibuprofen 2018-0 Yes 800mg Take 1 Unive rs 800 mg 1-03 tablet by ity of tablet 00:00: mouth [place] 00 every 6 Medical (six) Branch hours as needed for Pain (scale 1-3) for up to 30 doses. ibuprofen 2018-0 Yes 800mg Take 1 Unive rs 800 mg 1-03 tablet by ity of tablet 00:00: mouth [place] 00 every 6 Medical (six) Branch hours as needed for Pain (scale 1-3) for up to 30 doses. ibuprofen 2018-0 Yes 800mg Take 1 Unive rs 800 mg 1-03 tablet by ity of tablet 00:00: mouth [place] 00 every 6 Medical (six) Branch hours as needed for Pain (scale 1-3) for up to 30 doses. ibuprofen 2018-0 Yes 800mg Take 1 Unive rs 800 mg 1-03 tablet by ity of tablet 00:00: mouth [place] 00 every 6 Medical (six) Branch hours as needed for Pain (scale 1-3) for up to 30 doses. ibuprofen 2018-0 Yes 800mg Take 1 Unive rs 800 mg 1-03 tablet by ity of tablet 00:00: mouth [place] 00 every 6 Medical (six) Branch hours as needed for Pain (scale 1-3) for up to 30 doses. ibuprofen 2018-0 Yes 800mg Take 1 Unive rs 800 mg 1-03 tablet by ity of tablet 00:00: mouth [place] 00 every 6 Medical (six) Branch hours as needed for Pain (scale 1-3) for up to 30 doses. Immunizations Ordered Filled Immunization Date Status Comments [facility] Immunization Name Name Varicella 2015-12-08 Completed [facility] (varivax)(chicken 00:00:00 [place] M edical pox) Branch Varicella 2015-12-08 Completed [facility] (varivax)(chicken 00:00:00 [place] [facility] pox) Branch Varicella 2015-12-08 Completed [facility] (varivax)(chicken 00:00:00 [place] [facility] pox) Branch Varicella 2015-12-08 Completed [facility] (varivax)(chicken 00:00:00 [place] [facility] pox) Branch Varicella 2015-12-08 Completed [facility] (varivax)(chicken 00:00:00 [place] [facility] pox) Branch Varicella 2015-12-08 Completed [facility] of (varivax)(chicken 00:00:00 [place] M ed[facility] pox) Branch MMR 2015-09-26 Completed [facility] of 00:00:00 [facility] TDAP 2015-09-26 Completed University of 00:00:00 [facility] Branch Varicella 2015-09-26 Completed University of (varivax)(chicken 00:00:00 [place] M edical pox) Branch MMR 2015-09-26 Completed University of 00:00:00 [facility] Branch TDAP 2015-09-26 Completed University of 00:00:00 [facility] Varicella 2015-09-26 Completed University of (varivax)(chicken 00:00:00 [place] M edical pox) Branch MMR 2015-09-26 Completed University of 00:00:00 [facility] Branch TDAP 2015-09-26 Completed University of 00:00:00 [facility] Varicella 2015-09-26 Completed University of (varivax)(chicken 00:00:00 [place] M edical pox) Branch MMR 2015-09-26 Completed University of 00:00:00 [facility] Branch TDAP 2015-09-26 Completed University of 00:00:00 [facility] Branch Varicella 2015-09-26 Completed University of (varivax)(chicken 00:00:00 [place] M edical pox) Branch MMR 2015-09-26 Completed University of 00:00:00 [facility] Branch TDAP 2015-09-26 Completed University of 00:00:00 [facility] Branch Varicella 2015-09-26 Completed University of (varivax)(chicken 00:00:00 [place] M edical pox) Branch MMR 2015-09-26 Completed University of 00:00:00 [facility] Branch TDAP 2015-09-26 Completed University of 00:00:00 [facility] Branch Varicella 2015-09-26 Completed University of (varivax)(chicken 00:00:00 [place] M edical pox) Branch Hep B, Adol or Pedi 2007-01-08 Completed Unive rsity of Dosage 00:00:00 [facility] Hep B, Adol or Pedi 2007-01-08 Completed Unive rsity of Dosage 00:00:00 [facility] Hep B, Adol or Pedi 2007-01-08 Completed Unive rsity of Dosage 00:00:00 [place] [facility] Hep B, Adol or Pedi 2007-01-08 Completed Unive rsity of Dosage 00:00:00 [place] [facility] Hep B, Adol or Pedi 2007-01-08 Completed Unive rsity of Dosage 00:00:00 [place] [facility] Hep B, Adol or Pedi 2007-01-08 Completed Unive rsity of Dosage 00:00:00 [facility] Branch TD Pres-Free 2002-12-14 Completed University o f 00:00:00 [place] [facility] TD Pres-Free 2002-12-14 Completed University o f 00:00:00 [place] [facility] TD Pres-Free 2002-12-14 Completed University o f 00:00:00 [place] [facility] TD Pres-Free 2002-12-14 Completed University o f 00:00:00 [facility] Branch TD Pres-Free 2002-12-14 Completed University o f 00:00:00 [facility] Branch TD Pres-Free 2002-12-14 Completed University o f 00:00:00 [place] [facility] Hep B, Adol or Pedi 2001-08-06 Completed Unive rsity of Dosage 00:00:00 [place] [facility] Hep B, Adol or Pedi 2001-08-06 Completed Unive rsity of Dosage 00:00:00 [place] [facility] Hep B, Adol or Pedi 2001-08-06 Completed Unive rsity of Dosage 00:00:00 [place] [facility] Hep B, Adol or Pedi 2001-08-06 Completed Unive rsity of Dosage 00:00:00 [place] [facility] Hep B, Adol or Pedi 2001-08-06 Completed Unive rsity of Dosage 00:00:00 [place] [facility] Hep B, Adol or Pedi 2001-08-06 Completed Unive rsity of Dosage 00:00:00 [place] [facility] Hep B, Adol or Pedi 2001-02-19 Completed Unive rsity of Dosage 00:00:00 [place] [facility] Hep B, Adol or Pedi 2001-02-19 Completed Unive rsity of Dosage 00:00:00 [place] [facility] Hep B, Adol or Pedi 2001-02-19 Completed Unive rsity of Dosage 00:00:00 [place] [facility] Hep B, Adol or Pedi 2001-02-19 Completed Unive rsity of Dosage 00:00:00 [facility] Hep B, Adol or Pedi 2001-02-19 Completed Unive rsity of Dosage 00:00:00 [facility] Hep B, Adol or Pedi 2001-02-19 Completed Unive rsity of Dosage 00:00:00 [place] [facility] 1995-12-02 Completed University of 00:00:00 [place] [facility] 1995-12-02 Completed University of 00:00:00 [place] [facility] 1995-12-02 Completed University of 00:00:00 [place] [facility] 1995-12-02 Completed University of 00:00:00 [place] [facility] 1995-12-02 Completed University of 00:00:00 [facility] 1995-12-02 Completed University of 00:00:00 [facility] Vital Signs Vital Name Observation Time Observation Value Comments Source Systolic blood 2022-10-31 16:31:00 106 mm[Hg] Univer sity of pressure [facility] Diastolic blood 2022-10-31 16:31:00 73 mm[Hg] Unive rsity of [facility] Heart rate 2022-10-31 16:31:00 74 /min [facility] Respiratory rate 2022-10-31 16:31:00 18 /min [facility] [place] [facility] Body height 2022-10-31 16:31:00 165.1 cm [facility] Body weight 2022-10-31 16:31:00 90.901 kg [facility] BMI 2022-10-31 16:31:00 33.35 kg/m2 [facility] Oxygen saturation in 2022-10-31 16:31:00 98 /min [facility] Arterial blood by [facility] Pulse oximetry Branch Systolic blood 2021-11-07 03:12:00 119 mm[Hg] Univer sity of pressure [facility] Diastolic blood 2021-11-07 03:12:00 63 mm[Hg] Unive rsity of pressure [facility] Heart rate 2021-11-07 03:12:00 81 /min [facility] 2021-11-07 03:12:00 16 /min [facility] [place] [facility] Oxygen saturation in 2021-11-07 03:12:00 98 /min [facility] Arterial blood by [facility] Pulse oximetry Branch Body temperature 2021-11-06 23:36:00 37.89 [place] [facility] Body weight 2021-11-06 19:15:00 90.719 kg [facility] BMI 2021-11-06 19:15:00 33.28 kg/m2 [facility] Procedures Procedure Date / Time Performing Clinician Source Performed US PELVIS COMPLETE WITH 2022-11-10 20:28:26 Estela Jean-Baptiste [facility] TRANSVAGINAL [facility] HIGH RISK HPV-THIN PREP 2022-10-31 16:36:00 Estela Jean-Baptiste [facility] PAP SMEAR-LIQUID BASED-CP 2022-10-31 16:36:00 Gertrudis Jean-Baptiste [facility] ASSIGNMENT OF BENEFITS 2022-10-31 16:12:26 Doctor Unassigned, [facility] [place] [facility] TEST, SERUM 2021-11-06 21:29:00 Cale Brittni [facility] BASIC METABOLIC PANEL 2021-11-06 21:29:00 Cale [facility] (NA, K, CL, CO2, GLUCOSE, Medica l Branch BUN, CREATININE, CA) CBC WITH DIFF 2021-11-06 21:29:00 Cale [facility] URINALYSIS 2021-11-06 21:29:00 Cale [facility] COVID-19 (ID NOW RAPID 2021-11-06 21:29:00 Brittni Madsen [facility] TESTING) Medical [place] LAB ONLY COVID 2021-11-06 21:29:00 Cale [facility] INTERPRETATION [facility] CT ABDOMEN PELVIS WO 2021-11-06 20:49:28 Brittni Madsen [facility] CONTRAST [facility] CONSENT/REFUSAL FOR 2021-11-06 19:20:57 Doctor Unassigned, [facility] DIAGNOSIS AND TREATMENT [place] [facility] Plan of Care Planned Activity Planned Date Details Comments Source Future Scheduled 2022-10-19 COVID-19 VACCINE [facility] Test 10:52:16 (#1) [code = COVID-19 VACCINE (#1)] Future Scheduled 2022-10-19 Hepatitis [facility] Test 10:52:16 screening (procedure) [code = 284498419] Future Scheduled 2022-10-19 Screening for [facility] Test 10:52:16 malignant neoplasm of cervix (procedure) [code = 645169458] Future Scheduled 2022-10-19 [facility]INE [facility] 10:52:16 [code = INFLUENZA VACCINE] Encounters Start End Encounter Admission Attending Care Care Encounter Source Date/Time Date/Time Type Type Clinicians Facility Department ID 2022-11-11 2022-11-11 Telephone [facility] [id number] Univers 00:00:00 00:00:00 Estela BOOKER [id number] it y of WOMEN'S [id number] Formerly [facility] [id number] [address] 2022-11-10 2022-11-10 Outpatient R ESTELA JEAN-BAPTISTE [facility] B [id number] Univers 14:50:09 23:59:00 [facility]22-[facility]10 2022-11-10 [facility] [id number] Univers 14:50:09 23:59:00 Encounter Estela MANUEL [id number] ity of CARE 4.2.7.2.686 [facility] AT [id number] De jean CASTELLANOS 806 [facility] 2022-11-09 2022-11-09 Patient [facility] [id number] Univers 00:00:00 00:00:00 Secure Msg Estela BOOKER [id number] ity of WOMEN'S [id number] [facility] [id number] [address] 2022-11-08 2022-11-08 Outpatient R KAILEY RIGGS [facility] [id number] Univers 15:00:00 15:00:00 ity [facility] 2022-10-31 2022-10-31 Office [facility] [id number] Univers 11:30:00 11:52:46 Visit Estela BOOKER [id number] it y of WOMEN'S 4.2.7.2.686 [facility] [id number] [facility] 134 Branch 2022-10-31 2022-10-31 Outpatient R ESTELA JEAN-BAPTISTE [facility] B [id number] Univers 11:30:00 11:52:46 TRIESTELA CHAVIRA [facility] 2022-10-31 2022-10-31 Orders Doctor NIDA [id number] Univers 00:00:00 00:00:00 Only Unassigned, LIV 350.1.13.10 ity of [place] [facility] 4.2.7.2.686 [place] [id number] [facility] 009 Branch 2021-11-13 2021-11-13 Outpatient [facility] [address] [place] 08:32:00 08:32:00 RENETTA Fowler da [facility] 2021-11-06 2021-11-06 Emergency X DELLIS, [facility] ERT [id number] Univers 14:16:00 22:15:00 [place] [facility] 2021-11-06 2021-11-06 Emergency Dellis, TRAUMA [id number] Univers 14:16:00 22:15:00 [facility] [id number] it y of [place] 4.2.7.2.686 [facility] [id number] [facility] 014 Branch 2021-07-26 2021-07-26 Emergency COMPA, [facility] 064 [id number] 54 [place] 00:00:00 00:00:00 BEGHANSHYAM [address] 2020-08-24 2020-08-25 [facility] Destiny [id number] [place] 00:00:00 00:00:00 BEGHANSHYAM [address] 2020-03-22 2020-03-22 Outpatient Kiet_R MMG MMG [id number] [place] 02:39:00 02:39:00 [facility] 2019-09-29 2019-09-30 [id number] [place] 00:00:00 00:00:00 BHAVIK [address] Results Test Description Test Time Test Comments Results Result Comments Source BASIC METABOLIC PANEL (NA, K, CL, CO2, GLUCOSE, BUN, 2021-11 22:03:02 CREATININE, CA) Test Item Value Reference Range Interpretation Comme nts NA (test code = 5336380304) 140 mmol/L 135-145 K (test code = 1922184672) 4.0 mmol/L 3.5-5.0 CL (test code = 0862817134) 105 mmol/L 98-108 CO2 TOTAL (test code = 25 mmol/L 23-31 5826869612) AGAP (test code = 6410815756) 2-16 BUN (test code = 6894424144) 12 mg/dL 7-23 GLUCOSE (test code = 1102902029) 83 mg/dL 70-110 CREATININE (test code = 0.86 mg/dL 0.50-1.04 2037002009) CALCIUM (test code = 0377042892) 9.0 mg/dL 8.6-10.6 eGFR (test code = 1768953474) mL/min/1.73m2 MARQUITA (test code = MARQUITA) Association of Glomerular Filtration Rate (GFR) and Staging of Kidney Disease* + +--------- + ----+| GFR (mL/min/1.73 m2) ?| With Kidney Damage ?| ?Without Kidney Damage+ +--- + +| ?>90 ?| ?Stage one ?| ? Normal ?+ +-------- + -----+| ?60-89 ?| ?Stage two ?| ? Decreased GFR ? + +--------- + ----+| ?30-59 ?| ?Stage three ?| ? Stage three ? + +--------- + ----+| ?15-29 ?| ?Stage four ? | ? Stage four ?+ +-------- + -----+| ?<15 (or dialysis) ? ?| ?Stage five ? | ? Stage five ?+ +-------- + -----+ *Each stage assumes the associated GFR level has been in effect for at least three months. ?Stages 1 to 5, with or without kidney disease, indicate chronic kidney disease. Notes: Determination of stages one and two (with eGFR >59mL/min/1.73 m2) requires estimation of kidney damage for at least three months as defined by structural or functional abnormalities of the kidney, manifested by either:Pathological abnormalities or Markers of kidney damage (including abnormalities in the composition of the blood or urine or abnormalities in imaging tests). [facility] [place] [facility], [id number] 22:00:30 Test Item Value Reference Range Interpretation Comments PREG SERUM (test code Negative = 0631262615) MARQUITA (test code = MARQUITA) Less than 10 IU/L. ?If low titer or ectopic is suspected, resubmit specimen in 48-72 hours. [facility] [place] [facility] WITH [id number] 21:52:19 Test Item Value Reference Range Interpretation Comments WBC (test code = See_Comment [Automated message] 3090-2) The system [employer] generated this result transmitted ref erence range: 4.30 - 1 1.10 10*3/?L. The re ference range was not u sed to interpret this result as normal/abnor mal. RBC (test code = See_Comment [Automated message] 249-8) The system [employer] generated this result transmitted ref erence range: 3.93 - 5 .25 10*6/?L. The re ference range was not u sed to interpret this result as normal/abnor mal. HGB (test code = 13.3 g/dL 11.6-15.0 718-7) HCT (test code = 39.9 % 35.7-45.2 4544-3) MCV (test code = 81.8 fL 80.6-95.5 787-2) MCH (test code = 27.3 pg 25.9-32.8 785-6) MCHC (test code = 33.3 g/dL 31.6-35.1 786-4) RDW-SD (test code 44.7 fL 39.0-49.9 = 00383-3) RDW-CV (test code 14.9 % 12.0-15.5 = 788-0) PLT (test code = See_Comment [Automated message] 537-3) The system whic h generated this result transmitted ref erence range: 166 - 35 8 10*3/?L. The re ference range was not u sed to interpret this result as normal/abnor mal. MPV (test code = 10.4 fL 9.5-12.9 23987-3) NRBC/100 WBC (test See_Comment [Automat ed message] code = 4006039668) The syste m which generated this result transmitted ref erence range: 0.0 - 10 .0 /100 WBCs. The refer ence range was not u sed to interpret this result as normal/abnor mal. NRBC x10^3 (test <0.01 See_Comment [Automated message] code = 6249247450) The syste m which generated this result transmitted ref erence range: 10*3/?L. The reference range was not used to interpr et this result as normal/abnormal . GRAN MAT (NEUT) % 68.2 % (test code = 770-8) IMM GRAN % (test 0.40 % code = 3554070217) LYMPH % (test code 20.4 % = 736-9) MONO % (test code 10.2 % = 5905-5) EOS % (test code = 0.4 % 713-8) BASO % (test code 0.4 % = 706-2) GRAN MAT 5.63 10*3/uL 1.88-7.09 x10^3(ANC) (test code = 6401703281) IMM GRAN x10^3 0.03 10*3/uL 0.00-0.06 (test code = 7674019046) LYMPH x10^3 (test 1.68 10*3/uL 1.32-3.29 code = 731-0) MONO x10^3 (test 0.84 10*3/uL 0.33-0.92 code = 742-7) EOS x10^3 (test 0.03 10*3/uL 0.03-0.39 code = 711-2) BASO x10^3 (test 0.03 10*3/uL 0.01-0.07 code = 704-7) [facility]"
--- NOTE | 2022-11-13 21:29 | RAD REPORT ---
EXAM DESCRIPTION: US - Extremity Venous [facility] - 11/13/2022 9:13 pm CLINICAL HISTORY: Swelling COMPARISON: None. TECHNIQUE: Real-time sonographic evaluation of the right upper extremity deep venous system was perf ormed. FINDINGS: Normal compressibility, flow augmentation, phasic flow and spontaneous flow is identified in the right upper extremity venous system. No intraluminal filling defects seen. IMPRESSION: No DVT in the right upper extremity.
--- NOTE | 2022-11-13 21:31 | RAD REPORT ---
EXAM DESCRIPTION: US - upper Extremity Artery [facility] - 11/13/2022 9:13 pm CLINICAL HISTORY: Right upper extremity swelling pain COMPARISON: None FINDINGS: Color Doppler, grayscale, and spectral analysis was performed. The right subclavian artery, axillary artery, brachial artery, radial artery, ulnar artery are patent and demonstrate normal triphasic waveforms. IMPRESSION: No flow limiting arterial stenosis within the right upper extremity.
--- NOTE | 2022-11-13 21:35 | RAD REPORT ---
EXAM DESCRIPTION: US - Extremity Nonvascular Limited - 11/13/2022 9:13 pm CLINICAL HISTORY: forearm mass COMPARISON: No comparisons FINDINGS: Focused ultrasound of the patient's palpable abnormality in the right forearm. Ovoid structure measuring 10 x 6 x 9 millimeters which is near isoechoic to fat. No sonographic evide nce of a foreign body identified. This is superficial to the muscular compartment. The structure is h ypovascular. It is not associated with any of the adjacent vasculature. IMPRESSION: Ovoid solid nodule in the forearm at the patient's palpable abnormality. It does not hav e the appearance of a lymph node or aggressive mass. It could represent a lipoma. No sonographic evid ence of a retained foreign body. Suggest clinical follow-up.
--- NOTE | 2022-11-13 21:43 | EDPHYS ---
Physician Documentation [facility] Name: Radha Hu Age: 31 yrs Sex: Female : 1990 Arrival Date: 11/13/2022 Time: 19:54 Bed 9 Private MD: DANNI Physician Frank Cloud HPI: 11/13 21:37 This 31 yrs old Female presents to ER via Ambulatory with complaints of Arm Pain. jmm 21:37 The patient or guardian complains of pain. Onset: The symptoms/episode began/occurred jmm acutely, today. Is a 31-year-old female with a history of chronic back pain, degenerative disc disease the presents emerged department with complaints of right forearm swelling which radiates down the arm to the hands. Patient states she noticed it about an hour ago and developed pain acutely. Denies fever or chills. Denies trauma.. 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 - Social history:: Smoking status: Patient denies any tobacco usage or history of. Patient/guardian denies using alcohol, street drugs. ROS: 21:37 Constitutional: Negative for fever, chills, and weight loss, Cardiovascular: Negative jmm for chest pain, palpitations, and edema, Respiratory: Negative for shortness of breath, cough, wheezing, and pleuritic chest pain. 21:37 MS/extremity: Positive for pain, swelling. 21:37 All other systems are negative. Exam: 21:37 Constitutional: This is a well developed, well nourished patient who is awake, alert, jmm and in no acute distress. Head/Face: atraumatic. Eyes: EOMI, no conjunctival erythema appreciated ENT: Moist Mucus Membranes Neck: Trachea midline, Supple Chest/axilla: Normal chest wall appearance and motion. Cardiovascular: Regular rate and rhythm. No edema appreciated Respiratory: Normal respirations, no respiratory distress appreciated Abdomen/GI: Non distended Back: Normal ROM Skin: General appearance color normal 21:37 Musculoskeletal/extremity: Cystlike mass noted to the right volar surface on the ulnar side of the forearm. 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 21:37 Skin: Appearance: Color: normal in color. 21:37 Neuro: Orientation: is normal, Mentation: is normal, Memory: is normal. 21:37 Psych: Behavior/mood is pleasant, cooperative. Vital Signs: 20:21 BP 119 / 86; Pulse 78; Resp 16 S; Temp 98.7(O); Pulse Ox 99% on R/A; Weight 90.72 kg lg3 (R); Height 5 ft. 5 in. (R); 20:21 Body Mass Index 33.28 (90.72 kg, 165.1 cm) lg3 MDM: 20:17 Patient medically screened. [facility] 21:37 Differential diagnosis: DVT, abscess, cyst, lipoma. Data reviewed: vital signs, nurses [facility] notes. Counseling: I had a detailed discussion with the patient and/or guardian regarding: the historical points, exam findings, and any diagnostic results supporting the discharge/admit diagnosis, radiology results, the need for outpatient follow up, to return to the emergency department if symptoms worsen or persist or if there are any questions or concerns that arise at home. ED course: Ultrasound negative for arterial occlusion or DVT. Advised to follow-up with surgery for further evaluation and possible removal.. 11/13 20:24 Order name: LE Artery Uni Ltd; Complete Time: 21:34 [facility] 11/13 20:24 Order name: Extremity Venous Unilateral Ltd; Complete Time: 21:34 [facility] 11/13 20:24 Order name: Extrmty Nonvasular Limited; Complete Time: 21:37 [facility] Administered Medications: No medications were administered Disposition Summary: 11/13/22 21:42 Discharge Ordered Location: Home jmm Condition: Stable jm Diagnosis - Right forearm mass jm Followup: [facility] - With: Kelvin Garrison MD - When: 2 - 3 days - Reason: Recheck today's complaints, Continuance of care, Re-evaluation by your physician Discharge Instructions: - Discharge Summary Sheet [facility] - Lipoma jm Forms: - Medication Reconciliation Form [facility] - Thank You Letter carlos - Antibiotic Education [facility] - Prescription Opioid Use [facility] - Patient Portal Instructions.htm [facility] Prescriptions: - orphenadrine citrate 100 mg Oral Tablet Sustained Release - take 1 tablet by ORAL route 2 times per day As needed; 20 tablet; Refills: 0, jmm Product Selection Permitted Signatures: Dispatcher [employer] EDBill Tomas PA PA jmm Gibson, Lacie, RN RN lg3
--- NOTE | 2022-11-13 21:43 | ER ---
Nurse's Notes [facility] Name: Radha Hu Age: 31 yrs Sex: Female : 1990 Arrival Date: 11/13/2022 Time: 19:54 Bed 9 Private MD: Diagnosis: Right forearm mass Presentation: 11/13 20:21 Chief complaint: Patient states: right arm pain X1 hour with new lump on inner forearm. lg3 complains of dizziness. Coronavirus screen: Client denies travel out of the [place] in the last 14 days. At this time, the client does not indicate any symptoms associated with coronavirus-19. Ebola Screen: No symptoms or risks identified at this time. Initial Sepsis Screen: Does the patient meet any 2 criteria? No. Patient's initial sepsis screen is negative. Does the patient have a suspected source of infection? No. Patient's initial sepsis screen is negative. Risk Assessment: Do you want to hurt yourself or someone else? Patient reports no desire to harm self or others. Onset of symptoms was November 13, 2022. 20:21 Method Of Arrival: Ambulatory lg3 20:21 Acuity: RENÉE 3 lg3 Triage Assessment: 20:23 General: Appears in no apparent distress. uncomfortable, Behavior is calm, cooperative. lg3 Pain: Complains of pain in right arm. EENT: No deficits noted. No signs and/or symptoms were reported regarding the EENT system. Neuro: No deficits noted. Cruz Agitation-Sedation Scale (RASS): 0 - Alert and Calm Level of Consciousness is awake, alert, obeys commands, Oriented to person, place, time, situation. Cardiovascular: No deficits noted. Denies chest pain, shortness of breath. Respiratory: No deficits noted. Airway is patent Respiratory effort is even, unlabored, Respiratory pattern is regular, symmetrical. GI: No deficits noted. No signs and/or symptoms were reported involving the gastrointestinal system. : No deficits noted. No signs and/or symptoms were reported regarding the genitourinary system. Derm: Skin is intact, is healthy with good turgor, Skin is dry, Skin is normal, Skin temperature is warm nodular area noted to inner right forearm. Musculoskeletal: No deficits noted. Circulation, motion, and sensation intact. Range of motion: intact in all extremities. [employer]: 20:27 LMP 11/13/2022 mb9 Historical: - Allergies: 20:23 duracef; lg3 20:23 Levaquin; lg3 20:23 Morphine; lg3 20:23 Tape; lg3 - Home Meds: 20:23 Norvasc 5 mg Oral tab 1 tab twice a day [Active]; HCTZ [Active]; Zoloft Oral [Active]; lg3 - PMHx: 20:23 "sponge kidneys"; chronic back pain; Degenerative disc disease; hiatal hernia; lg3 Hypertension; ibs; Kidney stones; spinal stenosis; - PSHx: 20:23 Appendectomy; section; Cholecystectomy; renal stents; lg3 - Immunization history:: Adult Immunizations up to date, Client reports having NOT received the Covid vaccine. - Social history:: Smoking status: Patient denies any tobacco usage or history of. Patient/guardian denies using alcohol, street drugs. Screenin:28 [facility] ED Fall Risk Assessment (Adult) History of falling in the last 3 months, mb9 including since admission No falls in past 3 months (0 pts) Confusion or Disorientation No (0 pts) Intoxicated or Sedated No (0 pts) Impaired Gait No (0 pts) Mobility Assist Device Used No (0 pt) Altered Elimination No (0 pt) Score/Fall Risk Level 0 - 2 = Low Risk Oriented to surroundings, Maintained a safe environment, Educated pt \\T\\ family on fall prevention, incl call for assistance when getting out of bed. Abuse screen: Denies threats or abuse. Nutritional screening: No deficits noted. Tuberculosis screening: No symptoms or risk factors identified. Assessment: 20:49 Reassessment: No changes from previously documented assessment. Patient and/or family mb9 updated on plan of care and expected duration. Pain level reassessed. Patient is alert, oriented x 3, equal unlabored respirations, skin warm/dry/pink. Vital Signs: 20:21 BP 119 / 86; Pulse 78; Resp 16 S; Temp 98.7(O); Pulse Ox 99% on R/A; Weight 90.72 kg lg3 (R); Height 5 ft. 5 in. (R); 20:21 Body Mass Index 33.28 (90.72 kg, 165.1 cm) 3 ED Course: 20:00 Patient arrived in ED. ja2 20:02 Mickail, Bill, PA is PHCP. m 20:02 Frank Cloud MD is Attending Physician. [facility] 20:16 Cathryn Machuca, RN is Primary Nurse. mb9 20:23 Triage completed. lg3 20:23 Arm band placed on right wrist. lg3 20:28 Bed in low position. Call light in reach. Side rails up X 1. Client placed on mb9 continuous cardiac and pulse oximetry monitoring. NIBP monitoring applied. 20:28 No provider procedures requiring assistance completed. mb9 21:15 US LE Artery Uni Ltd In Process Unspecified. EDMS 21:15 US Extremity Venous Unilateral Ltd In Process Unspecified. EDMS 21:15 US Extrmty Nonvasular Limited In Process Unspecified. EDMS 21:42 Kelvin Garrison MD is Referral Physician. jmm 21:51 Patient did not have IV access during this emergency room visit. mb9 Administered Medications: No medications were administered Medication: 20:28 VIS not applicable for this client. mb9 Outcome: 21:42 Discharge ordered by MD. [facility] 21:51 Discharged to home ambulatory. mb9 21:51 Condition: stable 21:51 Discharge instructions given to patient, Instructed on discharge instructions, follow up and referral plans. Demonstrated understanding of instructions, follow-up care, medications, Prescriptions given X 1. 21:51 Patient left the ED. mb9 Signatures: Dispatcher [employer] EDOR Bill Reina PA PA jmm Gibson, Lacie, RN RN lg3 Jerica Rich kami Cathryn Machuca, RN RN mb9 Corrections: (The following items were deleted from the chart) 20:15 20:15 Chief complaint: lg3 lg3
[2022-11-13 23:10] VITALS: BP 119/86; TEMP 98.7; O2SAT 99
== END 2022-11-13 21:51 | disposition home or self-care (01) ==
LOC: ER 19:54
DX: R22.31 Localized swelling, mass and lump, right upper limb (principal); Z88.1 Allergy status to other antibiotic agents; Z88.3 Allergy status to other anti-infective agents; Z88.5 Allergy status to narcotic agent; Z91.048 Other nonmedicinal substance allergy status
CPT/HCPCS: 76882; 93926; 93971

== ENCOUNTER → 2022-11-20 | Day surgery (SDC) | payer OTHER ==
--- NOTE | 2022-11-20 11:38 | RAD REPORT ---
EXAM DESCRIPTION: Ultrasound-guided vacuum assisted right breast core biopsy CLINICAL HISTORY: Breast mass R92.8 COMPARISON: Extremity Nonvascular Limited dated 11/13/2022 FINDINGS: Informed consent was obtained and time-out was performed. The patient's right breast was prepped and draped in the usual sterile fashion. 1% lidocaine was used for local anesthetic purposes. Utilizing aseptic technique and ultrasound guidance, a 12 gauge vacuum assisted core biopsy device wa s used to obtain 2 core specimens through the mass of interest 9 o'clock position, measuring 3.7 cm. A post biopsy clip was then placed. All collected material was sent for cytology. Patient tolerated procedure well. IMPRESSION: Successful ultrasound guided vacuum assisted right breast mass biopsy.
== END ==
LOC: DS 10:30
PROVIDERS: ATTEND Advanced Practice Midwife
PROC: 0H9T3ZX Drainage of Right Breast, Percutaneous Approach, Diagnostic (ICD-10-PCS; principal; 2022-11-20)
DX: D24.1 Benign neoplasm of right breast (principal); R92.8 Other abnormal and inconclusive findings on diagnostic imaging of breast
CPT/HCPCS: 19083; 88305

== ENCOUNTER → 2022-12-06 | Day surgery (SDC) | payer OTHER ==
--- NOTE | 2022-12-06 14:08 | RAD REPORT ---
EXAM DESCRIPTION: US - Breast Core BX w/US Guidance - 12/06/2022 10:55 am CLINICAL HISTORY: ICD R 92.8 COMPARISON: ultrasound November 15, 2022 TECHNIQUE: The risks, benefits alternatives to the procedure were explained to the patient and infor med consent obtained. Skin and deeper tissues anesthetized with lidocaine. Under sonographic guidance, two 14 gauge vacuum assisted core biopsies of the mass within the upper i nner right breast obtained. 2 centimeter specimens taken. Tissue given to pathology. Subsequently a localizing clip was placed into the mass. Patient experienced no immediate complication IMPRESSION: Vacuum assisted core biopsies mass upper inner right breast
== END ==
LOC: DS 08:00
PROVIDERS: ATTEND Advanced Practice Midwife
DX: R92.8 Other abnormal and inconclusive findings on diagnostic imaging of breast (principal)
CPT/HCPCS: 19083; 88305